=== PATIENT | female | born 1950 | race Caucasian/White ===

== ENCOUNTER 2016-11-22 17:34 | Inpatient (IN) | payer MEDICARE ==
[~2016-11-22] VITALS: Ht 160 cm; Wt 111.0 kg
[~2016-11-22 17:34] MED LIST: FLUARIX QUADRIV1 INJ IM
[2016-11-22 18:20] VITALS: BP 167/83
[2016-11-22 18:41] LABS: HEMATOCRIT 31.7 % (37.0-47.0); IMMATURE GRANULOCYTES 0.9 % (0.0-1.0); MEAN CELL VOLUME 81.9 fL CALC (80.0-100.0); MEAN CORPUSCULAR HGB 28.4 pG CALC (26.0-32.0); MEAN CORPUSCULAR HGB CONC 34.7 g/L CALC (32.0-36.0); NEUT# 6.05 thou/uL (2.00-7.15); RED BLOOD COUNT 3.87 mill/uL (4.20-5.60); RED CELL DISTRI WIDTH 12.2 % (11.5-15.5)
[2016-11-22 18:52] LABS: ALKALINE PHOSPHATASE 118 u/l (38-126); ANION GAP 15 (6-22 (CALC)); BILIRUBIN, TOTAL 0.3 mg/dL (0.0-1.4); BUN 19 mg/dL (8-23); BUN/CREATININE RATIO 24 (12-20 (CALC)); C-REACTIVE PROTEIN 2.3 mg/dL (0-0.9); CALCIUM 9.6 mg/dL (8.4-10.2); CARBON DIOXIDE 29 mmol/l (22-30); CHLORIDE 95 mmol/l (95-108); CREATININE 0.8 mg/dL (0.5-1.0); GFR > 60 ML/MIN (>=60 (CALC)); GFR FOR AFR.AMER. > 60 ML/MIN (>=60 (CALC)); GLUCOSE 325 mg/dL (82-115); POTASSIUM 4.4 mmol/l (3.5-5.1); SGOT/AST 20 u/l (9-36); SGPT/ALT 41 u/l (11-66); SODIUM 135 mmol/l (137-146); TOTAL PROTEIN 6.9 g/dL (6.3-8.2)
[2016-11-23] MEDS ORDERED: GLIPIZIDE10 M2 PO (01:06)
[2016-11-23] MEDS ORDERED: METFORMIN1000 MG PO (01:06)
[2016-11-23] MEDS ORDERED: OMEPRAZOLE20 M1 PO (01:08)
[2016-11-23] MEDS ORDERED: LEVOTHYROXIN150 MC1 PO (01:40)
[2016-11-23] MEDS ORDERED: LOSARTAN POT50 MG PO (01:40)
[2016-11-23] MEDS ORDERED: LOVASTATIN20 M1 PO (01:41)
[2016-11-23] MEDS ORDERED: MONTELUKAST SOD10 MG PO (01:46)
[2016-11-23] MEDS ORDERED: HYDROCHLOROTH12.5 M1 PO (01:49)
[2016-11-23] MEDS ORDERED: PRAMIPEXOLE0.125 MG PO (01:49)
[2016-11-23] MEDS ORDERED: VITAMIN D31000 UNI1 PO (01:52)
[2016-11-23] MEDS ORDERED: [UNRECOGNIZED DRUG - OTHER] PO (01:55)
[2016-11-23] MEDS ORDERED: PERCOCET 5/325M1 TAB PO (01:56)
[2016-11-23] MEDS ORDERED: DOCUSATE SOD100 M2 PO (01:56)
[2016-11-23 04:40] VITALS: BP 129/76
[2016-11-23 07:08] LABS: ANION GAP 12 (6-22 (CALC)); BUN 18 mg/dL (8-23); BUN/CREATININE RATIO 23 (12-20 (CALC)); CALCIUM 9.3 mg/dL (8.4-10.2); CALCULATED LDLCHOLESTEROL 115 mg/dL (62-129 (CALC)); CARBON DIOXIDE 30 mmol/l (22-30); CHLORIDE 99 mmol/l (95-108); CREATININE 0.8 mg/dL (0.5-1.0); GFR > 60 ML/MIN (>=60 (CALC)); GFR FOR AFR.AMER. > 60 ML/MIN (>=60 (CALC)); GLUCOSE 180 mg/dL (82-115); HDL CHOLESTEROL 44 mg/dL (>=40); MAGNESIUM 1.6 mg/dL (1.6-2.3); POTASSIUM 4.3 mmol/l (3.5-5.1); SODIUM 137 mmol/l (137-146); TOTAL CHOLESTEROL 217 mg/dl (0-199); TRIGLYCERIDES REFLEX TO dLDL 288 mg/dl (30-149); VLDL CHOLESTROL 58 mg/dl (1-41 (CALC))
[2016-11-23 07:38] LABS: TSH, 3RD GENERATION 7.05 uIU/mL (0.47 - 4.68)
[2016-11-23 10:30] VITALS: BP 129/76
[2016-11-23 15:41] VITALS: BP 145/76
[2016-11-23 20:40] VITALS: BP 160/74
[2016-11-24] VITALS (10 sets, daily range): BP systolic 118–160; BP diastolic 45–74
[2016-11-25 04:25] VITALS: BP 146/74
[2016-11-25 04:54] LABS: ANION GAP 11 (6-22 (CALC)); BUN 14 mg/dL (8-23); BUN/CREATININE RATIO 20 (12-20 (CALC)); CALCIUM 9.1 mg/dL (8.4-10.2); CARBON DIOXIDE 30 mmol/l (22-30); CHLORIDE 101 mmol/l (95-108); CREATININE 0.7 mg/dL (0.5-1.0); GFR > 60 ML/MIN (>=60 (CALC)); GFR FOR AFR.AMER. > 60 ML/MIN (>=60 (CALC)); GLUCOSE 134 mg/dL (82-115); POTASSIUM 4.6 mmol/l (3.5-5.1); SODIUM 138 mmol/l (137-146)
[2016-11-25 05:54] LABS: HEMATOCRIT 31.2 % (37.0-47.0); HEMOGLOBIN 10.5 g/dl (12.0-16.0); IMMATURE GRANULOCYTES 0.9 % (0.0-1.0); MEAN CELL VOLUME 83.9 fL CALC (80.0-100.0); MEAN CORPUSCULAR HGB 28.2 pG CALC (26.0-32.0); MEAN CORPUSCULAR HGB CONC 33.7 g/L CALC (32.0-36.0); NEUT# 6.13 thou/uL (2.00-7.15); RED BLOOD COUNT 3.72 mill/uL (4.20-5.60); RED CELL DISTRI WIDTH 12.2 % (11.5-15.5)
[2016-11-25 08:14] VITALS: BP 162/77
[2016-11-25 15:41] VITALS: BP 151/67
[2016-11-25 20:00] VITALS: BP 145/71
[2016-11-26 04:00] VITALS: BP 137/73
[2016-11-26 07:40] VITALS: BP 179/55
[2016-11-26 09:37] VITALS: BP 137/73
== END 2016-11-26 15:40 | DRG 617 ==
LOC: MS2 17:34
PROVIDERS: Internal Medicine; ADMIT Internal Medicine; ATTEND Internal Medicine
PROC: 02HV33Z Insertion of Infusion Device into Superior Vena Cava, Percutaneous Approach (ICD-10-PCS; 2016-11-23)
PROC: B518ZZA Fluoroscopy of Superior Vena Cava, Guidance (ICD-10-PCS; 2016-11-23)
PROC: 0Y6N0ZF Detachment at Left Foot, Partial 5th Ray, Open Approach (ICD-10-PCS; principal; 2016-11-24)
DX: E11.69 Type 2 diabetes mellitus with other specified complication (principal); M86.9 Osteomyelitis, unspecified; E11.65 Type 2 diabetes mellitus with hyperglycemia; E11.51 Type 2 diabetes mellitus with diabetic peripheral angiopathy without gangrene; L97.429 Non-pressure chronic ulcer of left heel and midfoot with unspecified severity; L03.116 Cellulitis of left lower limb; T82.898A Other specified complication of vascular prosthetic devices, implants and grafts, initial encounter; I10 Essential (primary) hypertension; E11.621 Type 2 diabetes mellitus with foot ulcer; L97.529 Non-pressure chronic ulcer of other part of left foot with unspecified severity; E11.42 Type 2 diabetes mellitus with diabetic polyneuropathy; I25.10 Atherosclerotic heart disease of native coronary artery without angina pectoris; E03.9 Hypothyroidism, unspecified; G47.33 Obstructive sleep apnea (adult) (pediatric); E78.5 Hyperlipidemia, unspecified; J45.909 Unspecified asthma, uncomplicated; K21.9 Gastro-esophageal reflux disease without esophagitis; G25.81 Restless legs syndrome; Y83.8 Other surgical procedures as the cause of abnormal reaction of the patient, or of later complication, without mention of misadventure at the time of the procedure; B95.2 Enterococcus as the cause of diseases classified elsewhere; Z79.84 Long term (current) use of oral hypoglycemic drugs; Z88.1 Allergy status to other antibiotic agents
CPT/HCPCS: A9579; J0692; J1650; J2997; J3370

== ENCOUNTER 2017-03-14 11:51 | Emergency (ER) | payer MEDICARE ==
[~2017-03-14] VITALS: Ht 160 cm; Wt 115.0 kg
[~2017-03-14 11:51] MED LIST changes: +DOCUSATE SOD100 M2 PO; +GLIPIZIDE10 M2 PO; +HYDROCHLOROTH12.5 M1 PO; +LEVOTHYROXIN150 MC1 PO; +LOSARTAN POT50 MG PO; +LOVASTATIN20 M1 PO; +METFORMIN1000 MG PO; +MONTELUKAST SOD10 MG PO; +OMEPRAZOLE20 M1 PO; +PERCOCET 5/325M1 TAB PO; +PRAMIPEXOLE0.125 MG PO; +VITAMIN D31000 UNI1 PO; +[UNRECOGNIZED DRUG - OTHER] PO
[2017-03-14 13:10] VITALS: BP 141/64
== END 2017-03-14 13:10 | disposition home or self-care (01) ==
LOC: ED 11:51
DX: S91.115A Laceration without foreign body of left lesser toe(s) without damage to nail, initial encounter (principal); W57.XXXA Bitten or stung by nonvenomous insect and other nonvenomous arthropods, initial encounter; S90.465A Insect bite (nonvenomous), left lesser toe(s), initial encounter; X58.XXXA Exposure to other specified factors, initial encounter; Y92.009 Unspecified place in unspecified non-institutional (private) residence as the place of occurrence of the external cause

== ENCOUNTER 2018-02-09 15:15 | Outpatient (RCR) | payer MEDICARE ==
[2018-01-11 08:40] VITALS: BP 152/74
[2018-01-11 14:20] VITALS: BP 151/73
[2018-01-11 21:53] VITALS: BP 135/53
[2018-01-12 08:17] VITALS: BP 156/72
[2018-01-12 14:35] VITALS: BP 141/64
[2018-01-12 21:50] VITALS: BP 151/61
[2018-01-13 08:00] VITALS: BP 123/90
[2018-01-13 14:15] VITALS: BP 151/69
[2018-01-13 21:38] VITALS: BP 146/71
[2018-01-14 08:42] VITALS: BP 142/71
[2018-01-14 14:41] VITALS: BP 167/81
[2018-01-14 14:55] LABS: ANION GAP 15 (6-22 (CALC)); BUN 29 mg/dL (8-23); BUN/CREATININE RATIO 29 (12-20 (CALC)); CARBON DIOXIDE 26 mmol/l (22-30); CHLORIDE 106 mmol/l (95-108); GFR 55 ML/MIN (>=60 (CALC)); GFR FOR AFR.AMER. > 60 ML/MIN (>=60 (CALC)); POTASSIUM 4.4 mmol/l (3.5-5.1); SODIUM 142 mmol/l (137-146)
[2018-01-15 08:59] VITALS: BP 161/83
[2018-01-15 16:29] VITALS: BP 136/65
[2018-01-16 11:49] VITALS: BP 150/97
[2018-01-16 16:02] VITALS: BP 153/78
[2018-01-17 08:32] VITALS: BP 163/93
[2018-01-17 15:22] LABS: HEMATOCRIT 32.5 % (37.0-47.0); HEMOGLOBIN 10.8 g/dl (12.0-16.0); IMMATURE GRANULOCYTES 0.3 % (0.0-5.0); MEAN CELL VOLUME 85.8 fL CALC (80.0-100.0); MEAN CORPUSCULAR HGB 28.5 pG CALC (26.0-32.0); MEAN CORPUSCULAR HGB CONC 33.2 g/L CALC (32.0-36.0); NEUT# 4.33 thou/uL (2.00-7.15); RED BLOOD COUNT 3.79 mill/uL (4.20-5.60); RED CELL DISTRI WIDTH 13.1 % (11.5-15.5)
[2018-01-17 16:28] LABS: ANION GAP 13 (6-22 (CALC)); BUN 29 mg/dL (8-23); BUN/CREATININE RATIO 31 (12-20 (CALC)); CARBON DIOXIDE 27 mmol/l (22-30); CHLORIDE 104 mmol/l (95-108); CREATININE 0.9 mg/dL (0.5-1.0); GFR > 60 ML/MIN (>=60 (CALC)); GFR FOR AFR.AMER. > 60 ML/MIN (>=60 (CALC)); POTASSIUM 4.6 mmol/l (3.5-5.1); SODIUM 140 mmol/l (137-146)
[2018-01-18 08:36] VITALS: BP 158/91
[2018-01-18 09:35] VITALS: BP 158/91
[2018-01-18 15:33] VITALS: BP 163/58
--- NOTE | 2018-01-18 15:55 | NUR ---
VANCOMYCIN 1500MG UNABLE TO BE SCANNED AT THIS TIME;SHIVA,PHARMACY NOTIFIED BY SIDDHARTHA, [employer] AND ORDERS TO ADMINISTER OBTAINED.CURRENT HARD COPY ORDER WITHIN DATE,PT TO RECEIVED FOR 6 WEEKS STARTING 12/30/17. VANCO TROUGH OBTAINED 01/17/18 RESULTED 13. CONTINUE WITH ADMINISTRATION AT THIS TIME.
[2018-01-19 09:52] VITALS: BP 128/75
[2018-01-19 15:07] VITALS: BP 166/82
[2018-01-20 09:10] VITALS: BP 160/92
[2018-01-20 17:11] VITALS: BP 155/72
[2018-01-21 09:47] VITALS: BP 161/69
[2018-01-21 15:25] LABS: ANION GAP 16 (6-22 (CALC)); BUN 24 mg/dL (8-23); BUN/CREATININE RATIO 30 (12-20 (CALC)); CARBON DIOXIDE 27 mmol/l (22-30); CHLORIDE 106 mmol/l (95-108); CREATININE 0.8 mg/dL (0.5-1.0); GFR > 60 ML/MIN (>=60 (CALC)); GFR FOR AFR.AMER. > 60 ML/MIN (>=60 (CALC)); POTASSIUM 4.5 mmol/l (3.5-5.1); SODIUM 143 mmol/l (137-146)
[2018-01-21 17:13] VITALS: BP 150/72
[2018-01-22 08:05] VITALS: BP 149/72
[2018-01-22 16:00] VITALS: BP 154/57
[2018-01-24 09:18] VITALS: BP 171/86
[2018-01-24 15:17] VITALS: BP 143/63
[2018-01-24 16:26] LABS: ANION GAP 18 (6-22 (CALC)); BUN 26 mg/dL (8-23); BUN/CREATININE RATIO 29 (12-20 (CALC)); CARBON DIOXIDE 23 mmol/l (22-30); CHLORIDE 106 mmol/l (95-108); CREATININE 0.9 mg/dL (0.5-1.0); GFR > 60 ML/MIN (>=60 (CALC)); GFR FOR AFR.AMER. > 60 ML/MIN (>=60 (CALC)); POTASSIUM 4.5 mmol/l (3.5-5.1); SODIUM 142 mmol/l (137-146)
[2018-01-25 09:57] VITALS: BP 167/79
[2018-01-25 18:45] VITALS: BP 139/80
[2018-01-26 08:34] VITALS: BP 177/89
[2018-01-26 15:30] VITALS: BP 135/70
[2018-01-27 07:59] VITALS: BP 156/80
[2018-01-27 15:49] LABS: HEMATOCRIT 30.1 % (37.0-47.0); HEMOGLOBIN 10.1 g/dl (12.0-16.0); IMMATURE GRANULOCYTES 0.4 % (0.0-5.0); MEAN CELL VOLUME 85.3 fL CALC (80.0-100.0); MEAN CORPUSCULAR HGB 28.6 pG CALC (26.0-32.0); MEAN CORPUSCULAR HGB CONC 33.6 g/L CALC (32.0-36.0); NEUT# 3.72 thou/uL (2.00-7.15); RED BLOOD COUNT 3.53 mill/uL (4.20-5.60); RED CELL DISTRI WIDTH 12.9 % (11.5-15.5)
[2018-01-27 16:12] LABS: ANION GAP 14 (6-22 (CALC)); BUN 27 mg/dL (8-23); BUN/CREATININE RATIO 32 (12-20 (CALC)); C-REACTIVE PROTEIN 0.7 mg/dL (0-0.9); CARBON DIOXIDE 27 mmol/l (22-30); CHLORIDE 105 mmol/l (95-108); CREATININE 0.9 mg/dL (0.5-1.0); GFR > 60 ML/MIN (>=60 (CALC)); GFR FOR AFR.AMER. > 60 ML/MIN (>=60 (CALC)); POTASSIUM 4.3 mmol/l (3.5-5.1); SODIUM 142 mmol/l (137-146)
[2018-01-27 17:40] VITALS: BP 147/83
[2018-01-28 07:15] VITALS: BP 148/74
[2018-01-29 10:40] VITALS: BP 165/81
[2018-01-30 07:57] VITALS: BP 180/80
[2018-01-30 15:31] LABS: HEMATOCRIT 30.7 % (37.0-47.0); HEMOGLOBIN 10.3 g/dl (12.0-16.0); IMMATURE GRANULOCYTES 0.3 % (0.0-5.0); MEAN CELL VOLUME 84.6 fL CALC (80.0-100.0); MEAN CORPUSCULAR HGB 28.4 pG CALC (26.0-32.0); MEAN CORPUSCULAR HGB CONC 33.6 g/L CALC (32.0-36.0); NEUT# 4.62 thou/uL (2.00-7.15); RED BLOOD COUNT 3.63 mill/uL (4.20-5.60); RED CELL DISTRI WIDTH 12.8 % (11.5-15.5)
[2018-01-30 15:57] LABS: ALKALINE PHOSPHATASE 117 u/l (38-126); ANION GAP 14 (6-22 (CALC)); BILIRUBIN, TOTAL 0.3 mg/dL (0.0-1.4); BUN 23 mg/dL (8-23); BUN/CREATININE RATIO 22 (12-20 (CALC)); CARBON DIOXIDE 27 mmol/l (22-30); CHLORIDE 106 mmol/l (95-108); GFR 55 ML/MIN (>=60 (CALC)); GFR FOR AFR.AMER. > 60 ML/MIN (>=60 (CALC)); POTASSIUM 4.4 mmol/l (3.5-5.1); SGPT/ALT 46 u/l (11-66); SODIUM 143 mmol/l (137-146); TOTAL PROTEIN 7.3 g/dL (6.3-8.2)
[2018-01-30 16:04] LABS: SGOT/AST 32 u/l (9-36)
[2018-01-30 17:02] LABS: C-REACTIVE PROTEIN 1.1 mg/dL (0-0.9)
[2018-01-31 08:15] VITALS: BP 151/66
[2018-01-31 16:43] VITALS: BP 143/69
[2018-02-01 08:00] VITALS: BP 185/78
[2018-02-01 09:00] VITALS: BP 185/78
[2018-02-01 15:29] VITALS: BP 191/65
--- NOTE | 2018-02-01 15:47 | NUR ---
DRESSING TO LEFT AC PICC LINE CHANGED USING STERILE TECHNIQUE, PT TOLERATED WELL. CALL ACHARYA WITHIN REACH
[2018-02-02 08:30] VITALS: BP 190/81
[2018-02-02 15:19] VITALS: BP 171/70
[2018-02-03 11:27] VITALS: BP 148/77
[2018-02-03 15:39] LABS: HEMATOCRIT 32.1 % (37.0-47.0); HEMOGLOBIN 10.8 g/dl (12.0-16.0); IMMATURE GRANULOCYTES 0.6 % (0.0-5.0); MEAN CELL VOLUME 84.5 fL CALC (80.0-100.0); MEAN CORPUSCULAR HGB 28.4 pG CALC (26.0-32.0); MEAN CORPUSCULAR HGB CONC 33.6 g/L CALC (32.0-36.0); NEUT# 5.3 thou/uL (2.00-7.15); RED BLOOD COUNT 3.8 mill/uL (4.20-5.60); RED CELL DISTRI WIDTH 12.9 % (11.5-15.5)
[2018-02-03 15:47] LABS: ANION GAP 16 (6-22 (CALC)); BUN 25 mg/dL (8-23); BUN/CREATININE RATIO 31 (12-20 (CALC)); C-REACTIVE PROTEIN 0.9 mg/dL (0-0.9); CARBON DIOXIDE 26 mmol/l (22-30); CHLORIDE 104 mmol/l (95-108); CREATININE 0.8 mg/dL (0.5-1.0); GFR > 60 ML/MIN (>=60 (CALC)); GFR FOR AFR.AMER. > 60 ML/MIN (>=60 (CALC)); POTASSIUM 4.3 mmol/l (3.5-5.1); SODIUM 141 mmol/l (137-146)
[2018-02-03 16:01] VITALS: BP 144/81
[2018-02-04 07:26] VITALS: BP 153/76
[2018-02-05 07:46] VITALS: BP 140/70
[2018-02-05 16:34] VITALS: BP 163/77
[2018-02-06 11:56] VITALS: BP 129/69
[2018-02-07 08:08] VITALS: BP 177/78
[2018-02-07 17:25] VITALS: BP 149/77
[2018-02-08 07:21] VITALS: BP 168/72
[2018-02-08 17:38] VITALS: BP 157/69
[~2018-02-09] VITALS: Ht 152.4 cm; Wt 115.7 kg
[2018-02-09 08:22] VITALS: BP 151/65
[~2018-02-09 15:15] MED LIST changes: +ADULT ASPIRIN E81 MG PO; +AMLODIPINE10 MG PO; +CLOPIDOGREL75 MG PO; +JANUVIA100 MG PO; +LEVOTHYROXIN125 MC1 PO; +LOSARTAN POT100 MG PO; +LOSARTAN/HCT1 TA2 PO; +METOPROL TAR25 MG PO; +MULT VITAMIN PO; +NOVOLOG FLEXPEN SC; +PRILOSEC20 MG PO; +SUPER BIOTIN5000 MC1 PO; +TRESIBA FL100 UNIT/M IJ; +VALACYCLOVIR500 MG PO; +VITAMIN C1000 MG PO
[2018-02-09 17:30] VITALS: BP 176/58
== END 2018-02-09 23:59 | disposition home or self-care (01) ==
LOC: ICUOP 15:15
PROVIDERS: ATTEND Nurse Practitioner Family
DX: E11.621 Type 2 diabetes mellitus with foot ulcer (principal); L97.522 Non-pressure chronic ulcer of other part of left foot with fat layer exposed; L97.512 Non-pressure chronic ulcer of other part of right foot with fat layer exposed; E11.22 Type 2 diabetes mellitus with diabetic chronic kidney disease
CPT/HCPCS: J3370; S0073

== ENCOUNTER 2018-02-17 15:03 | Outpatient (RCR) | payer MEDICARE ==
[2018-02-10 08:00] VITALS: BP 174/76
[2018-02-10 17:38] VITALS: BP 185/81
[2018-02-11 09:39] VITALS: BP 175/70
[2018-02-12 08:50] VITALS: BP 149/73
[2018-02-12 15:21] VITALS: BP 163/70
[2018-02-13 09:53] VITALS: BP 165/73
[2018-02-13 15:22] LABS: HEMATOCRIT 31.8 % (37.0-47.0); HEMOGLOBIN 10.8 g/dl (12.0-16.0); MEAN CELL VOLUME 84.1 fL CALC (80.0-100.0); MEAN CORPUSCULAR HGB 28.6 pG CALC (26.0-32.0); NEUT# 5.76 thou/uL (2.00-7.15); RED BLOOD COUNT 3.78 mill/uL (4.20-5.60); RED CELL DISTRI WIDTH 13.2 % (11.5-15.5)
[2018-02-13 15:50] LABS: ANION GAP 14 (6-22 (CALC)); BUN 22 mg/dL (8-23); BUN/CREATININE RATIO 31 (12-20 (CALC)); C-REACTIVE PROTEIN 0.7 mg/dL (0-0.9); CARBON DIOXIDE 27 mmol/l (22-30); CHLORIDE 103 mmol/l (95-108); CREATININE 0.7 mg/dL (0.5-1.0); GFR > 60 ML/MIN (>=60 (CALC)); GFR FOR AFR.AMER. > 60 ML/MIN (>=60 (CALC)); POTASSIUM 4.2 mmol/l (3.5-5.1); SODIUM 141 mmol/l (137-146)
[2018-02-14 08:35] VITALS: BP 185/83
[2018-02-14 16:26] VITALS: BP 147/63
[2018-02-15 08:10] VITALS: BP 202/83
[2018-02-15 14:58] VITALS: BP 167/72
[2018-02-16 08:43] VITALS: BP 168/94
[2018-02-16 17:37] VITALS: BP 181/76
[2018-02-17 07:21] LABS: HEMATOCRIT 32.1 % (37.0-47.0); HEMOGLOBIN 10.9 g/dl (12.0-16.0); MEAN CELL VOLUME 85.6 fL CALC (80.0-100.0); MEAN CORPUSCULAR HGB 29.1 pG CALC (26.0-32.0); RED BLOOD COUNT 3.75 mill/uL (4.20-5.60); RED CELL DISTRI WIDTH 13.4 % (11.5-15.5)
[2018-02-17 08:07] LABS: ANION GAP 15 (6-22 (CALC)); BUN 25 mg/dL (8-23); BUN/CREATININE RATIO 33 (12-20 (CALC)); C-REACTIVE PROTEIN < 0.5 mg/dL (0-0.9); CARBON DIOXIDE 26 mmol/l (22-30); CHLORIDE 103 mmol/l (95-108); CREATININE 0.8 mg/dL (0.5-1.0); GFR > 60 ML/MIN (>=60 (CALC)); GFR FOR AFR.AMER. > 60 ML/MIN (>=60 (CALC)); POTASSIUM 4.3 mmol/l (3.5-5.1); SODIUM 140 mmol/l (137-146)
[2018-02-17 11:13] VITALS: BP 168/83
[2018-02-17 18:38] VITALS: BP 143/658
== END 2018-02-17 17:45 ==
LOC: INF 15:03
PROVIDERS: ATTEND Nurse Practitioner Family
DX: E11.621 Type 2 diabetes mellitus with foot ulcer (principal); L97.522 Non-pressure chronic ulcer of other part of left foot with fat layer exposed; L97.512 Non-pressure chronic ulcer of other part of right foot with fat layer exposed
CPT/HCPCS: J3370; S0073

== ENCOUNTER 2018-05-28 13:45 | Outpatient (RCR) | payer MEDICARE | END 2018-05-28 16:45 | disposition home or self-care (01) | LOC: OPWC 13:45 | PROVIDERS: ATTEND Surgery | DX: E11.621 Type 2 diabetes mellitus with foot ulcer (principal); I70.203 Unspecified atherosclerosis of native arteries of extremities, bilateral legs; E11.40 Type 2 diabetes mellitus with diabetic neuropathy, unspecified; E11.65 Type 2 diabetes mellitus with hyperglycemia; E66.9 Obesity, unspecified; R60.9 Edema, unspecified | CPT/HCPCS: A6210 ==

== ENCOUNTER → 2018-06-25 | Outpatient (REF) | payer MEDICARE | END | disposition home or self-care (01) | LOC: DI 13:22 | PROVIDERS: ATTEND Podiatrist Foot & Ankle Surgery | DX: M79.671 Pain in right foot (principal); M86.8X7 Other osteomyelitis, ankle and foot; Z89.421 Acquired absence of other right toe(s); Z89.422 Acquired absence of other left toe(s) ==

== ENCOUNTER 2019-02-07 11:16 | Emergency (ER) | payer MEDICARE ==
[~2019-02-07] VITALS: Ht 152.4 cm; Wt 135.0 kg
[2019-02-07 14:55] VITALS: BP 180/78
== END 2019-02-07 14:55 | disposition home or self-care (01) ==
LOC: ED 11:16
PROC: 0HQNXZZ Repair Left Foot Skin, External Approach (ICD-10-PCS; principal; 2019-02-07)
DX: S91.115A Laceration without foreign body of left lesser toe(s) without damage to nail, initial encounter (principal); S63.501A Unspecified sprain of right wrist, initial encounter; S80.01XA Contusion of right knee, initial encounter; E11.9 Type 2 diabetes mellitus without complications; I10 Essential (primary) hypertension; E03.9 Hypothyroidism, unspecified; I25.10 Atherosclerotic heart disease of native coronary artery without angina pectoris; W01.0XXA Fall on same level from slipping, tripping and stumbling without subsequent striking against object, initial encounter; Z95.5 Presence of coronary angioplasty implant and graft; Z89.421 Acquired absence of other right toe(s); Z95.1 Presence of aortocoronary bypass graft; Z89.422 Acquired absence of other left toe(s)

== ENCOUNTER 2019-03-10 09:31 | Day surgery (SDC) | payer MEDICARE ==
[~2019-03-10] VITALS: Ht 160 cm; Wt 121.1 kg
[~2019-03-10 09:31] MED LIST changes: +B COMPLEX PLUS PO; +BENICAR HCT1 TA1 PO; +COQ10200 MG PO; +EDTA DISODIU XX; +FUROSEMIDE20 MG PO
[2019-03-10 13:05] VITALS: BP 142/61
== END 2019-03-10 13:14 | disposition home or self-care (01) ==
LOC: ORM 09:31
PROVIDERS: ATTEND Podiatrist Foot & Ankle Surgery
PROC: 0Y6W0Z0 Detachment at Left 4th Toe, Complete, Open Approach (ICD-10-PCS; principal; 2019-03-10)
DX: E11.621 Type 2 diabetes mellitus with foot ulcer (principal); L97.528 Non-pressure chronic ulcer of other part of left foot with other specified severity; L03.032 Cellulitis of left toe; M20.42 Other hammer toe(s) (acquired), left foot; E11.42 Type 2 diabetes mellitus with diabetic polyneuropathy; E11.51 Type 2 diabetes mellitus with diabetic peripheral angiopathy without gangrene; I10 Essential (primary) hypertension; I25.10 Atherosclerotic heart disease of native coronary artery without angina pectoris; Z89.422 Acquired absence of other left toe(s); Z98.62 Peripheral vascular angioplasty status; Z79.4 Long term (current) use of insulin; Z95.1 Presence of aortocoronary bypass graft

== ENCOUNTER 2019-06-19 | Day surgery (SDC) | payer MEDICARE ==
[~2019-06-19] MED LIST changes: +COLACE CLEAR50 MG PO; +GABAPENTIN300 M2 PO; +LEVOTHYROXIN137 MCG PO; +LIPITOR10 M1 PO; -PRILOSEC20 MG PO; +PRILOSEC20 MG/CAP PO; +RESTORIL15 M1 PO; +TYLENOL325 M2 PO; +[UNRECOGNIZED DRUG - OTHER] PO
== END 2019-06-19 11:45 | disposition home or self-care (01) ==
PROC: 0DB98ZX Excision of Duodenum, Via Natural or Artificial Opening Endoscopic, Diagnostic (ICD-10-PCS; principal; 2019-06-19)
PROC: 0DB78ZX Excision of Stomach, Pylorus, Via Natural or Artificial Opening Endoscopic, Diagnostic (ICD-10-PCS; 2019-06-19)
PROC: 0DB48ZX Excision of Esophagogastric Junction, Via Natural or Artificial Opening Endoscopic, Diagnostic (ICD-10-PCS; 2019-06-19)
PROC: 0D758ZZ Dilation of Esophagus, Via Natural or Artificial Opening Endoscopic (ICD-10-PCS; 2019-06-19)
DX: K29.50 Unspecified chronic gastritis without bleeding (principal); K44.9 Diaphragmatic hernia without obstruction or gangrene; K31.7 Polyp of stomach and duodenum; I10 Essential (primary) hypertension; J44.9 Chronic obstructive pulmonary disease, unspecified; E11.51 Type 2 diabetes mellitus with diabetic peripheral angiopathy without gangrene; I25.10 Atherosclerotic heart disease of native coronary artery without angina pectoris; Z79.899 Other long term (current) drug therapy; Z95.1 Presence of aortocoronary bypass graft; Z95.5 Presence of coronary angioplasty implant and graft; Z79.84 Long term (current) use of oral hypoglycemic drugs

== ENCOUNTER 2019-08-08 | Emergency (ER) | payer MEDICARE ==
[2019-08-08 12:32] LABS: HEMATOCRIT 37.5 % (37.0-47.0); HEMOGLOBIN 11.9 g/dl (12.0-16.0); IMMATURE GRANULOCYTES 0.3 % (0.0-5.0); MEAN CELL VOLUME 83.5 fL CALC (80.0-100.0); MEAN CORPUSCULAR HGB 26.5 pG CALC (26.0-32.0); MEAN CORPUSCULAR HGB CONC 31.7 g/dL CAL (32.0-36.0); NEUT# 5.71 thou/uL (2.00-7.15); RED BLOOD COUNT 4.49 mill/uL (4.20-5.60); RED CELL DISTRI WIDTH 13.2 % (11.5-15.5)
[2019-08-08 12:51] LABS: ALBUMIN 3.8 g/dL (3.2-5.0); ANION GAP 13 (6-22 (CALC)); BILIRUBIN, TOTAL 0.7 mg/dL (0.0-1.4); BUN 13 mg/dL (8-23); BUN/CREATININE RATIO 16 (12-20 (CALC)); CARBON DIOXIDE 26 mmol/l (22-30); CHLORIDE 100 mmol/l (95-108); CREATININE 0.8 mg/dL (0.5-1.0); GFR > 60 ML/MIN (>=60 (CALC)); GFR FOR AFR.AMER. > 60 ML/MIN (>=60 (CALC)); POTASSIUM 4.1 mmol/l (3.5-5.1); SODIUM 134 mmol/l (137-146); TOTAL PROTEIN 6.8 g/dL (6.3-8.2)
[2019-08-08 12:52] LABS: ALKALINE PHOSPHATASE 205 u/l (38-126); SGOT/AST 59 u/l (9-36)
[2019-08-08] MEDS ORDERED: REGLAN10 MG PO (13:01)
== END 2019-08-08 13:26 | disposition home or self-care (01) ==
DX: E11.9 Type 2 diabetes mellitus without complications (principal); R11.2 Nausea with vomiting, unspecified; I10 Essential (primary) hypertension; E03.9 Hypothyroidism, unspecified; I25.10 Atherosclerotic heart disease of native coronary artery without angina pectoris; Z95.5 Presence of coronary angioplasty implant and graft; Z79.4 Long term (current) use of insulin; Z98.84 Bariatric surgery status; E86.0 Dehydration

== ENCOUNTER 2019-08-29 | Emergency (ER) | payer MEDICARE ==
[~2019-08-29] MED LIST changes: +REGLAN10 MG PO
[2019-08-29 11:38] LABS: HEMATOCRIT 31.6 % (37.0-47.0); HEMOGLOBIN 10.1 g/dl (12.0-16.0); IMMATURE GRANULOCYTES 0.3 % (0.0-5.0); MEAN CORPUSCULAR HGB 26.9 pG CALC (26.0-32.0); NEUT# 5.64 thou/uL (2.00-7.15); RED BLOOD COUNT 3.76 mill/uL (4.20-5.60); RED CELL DISTRI WIDTH 13.2 % (11.5-15.5)
[2019-08-29 12:18] LABS: ANION GAP 10 (6-22 (CALC)); BILIRUBIN, TOTAL 0.9 mg/dL (0.0-1.4); BUN 9 mg/dL (8-23); BUN/CREATININE RATIO 13 (12-20 (CALC)); CARBON DIOXIDE 25 mmol/l (22-30); CHLORIDE 103 mmol/l (95-108); CREATININE 0.7 mg/dL (0.5-1.0); GFR > 60 ML/MIN (>=60 (CALC)); GFR FOR AFR.AMER. > 60 ML/MIN (>=60 (CALC)); LIPASE 12 u/l (23-300); POTASSIUM 3.9 mmol/l (3.5-5.1); SGOT/AST 19 u/l (9-36); SODIUM 134 mmol/l (137-146)
[2019-08-29 12:28] LABS: ALBUMIN 2.7 g/dL (3.2-5.0); ALKALINE PHOSPHATASE 89 u/l (38-126); AMYLASE < 30 u/l (30-110); TOTAL PROTEIN 5.3 g/dL (6.3-8.2)
[2019-08-29 12:43] LABS: URINE BILIRUBIN - DIPSTICK NEGATIVE (NEGATIVE); URINE BLOOD DIPSTICK NEGATIVE (NEGATIVE); URINE COLOR YELLOW; URINE GLUCOSE - DIPSTICK NEGATIVE (NEGATIVE); URINE KETONE NEGATIVE (NEGATIVE); URINE LEUK ESTERASE NEGATIVE (NEGATIVE); URINE NITRITE - DIPSTICK NEGATIVE (Negative); URINE PH 5.5 (4.5-8.0); URINE PROTEIN - DIPSTICK NEGATIVE (NEG-TRACE); URINE SPECIFIC GRAVITY 1.015; URINE UROBILINOGEN - DIPSTICK 0.2 E.U./dL (0.2)
[2019-08-29] MEDS ORDERED: ZOFRAN4 MG/TAB PO (16:17)
[2019-08-29] MEDS ORDERED: METOCLOPRAMIDE10 MG PO (16:17)
[2019-08-29] MEDS ORDERED: SCOPOLAMIN1 MG/3 DAY (16:17)
[2019-08-29] MEDS ORDERED: POTASSIUM CHLO20 ME2 PO (16:17)
== END 2019-08-29 16:07 | disposition home or self-care (01) ==
PROVIDERS: Emergency Medicine
DX: R11.2 Nausea with vomiting, unspecified (principal); E11.9 Type 2 diabetes mellitus without complications; I10 Essential (primary) hypertension; E03.9 Hypothyroidism, unspecified; I25.10 Atherosclerotic heart disease of native coronary artery without angina pectoris; Z95.1 Presence of aortocoronary bypass graft; Z95.5 Presence of coronary angioplasty implant and graft; Z98.84 Bariatric surgery status; Z79.4 Long term (current) use of insulin; Z93.1 Gastrostomy status
CPT/HCPCS: J3475; Q9967

== ENCOUNTER 2020-06-14 11:16 | Day surgery (SDC) | payer MEDICARE ==
[~2020-06-14] VITALS: Ht 160 cm; Wt 87.5 kg
[~2020-06-14 11:16] MED LIST changes: +AMITRIPTYLIN10 MG PO; +BARIATRIC MULTI1 CAP PO; +BIOTIN5000 MC2 PO; +CALCI-CHE1 PO; +FERRAPLUS 90 PO; +LAXATIVE FORMULA PO; +MECLIZINE25 MG PO; +METOCLOPRAMIDE10 MG PO; +POTASSIUM CHLO20 ME2 PO; +PRAMIPEXOLE DI0.5 MG PO; -PRAMIPEXOLE0.125 MG PO; +SCOPOLAMIN1 MG/3 DAY; +VALERIAN ROOT250 MG PO; +ZOFRAN4 MG/TAB PO
[2020-06-14 16:10] VITALS: BP 118/53
== END 2020-06-14 16:45 | disposition home or self-care (01) ==
LOC: ORM 11:16
PROVIDERS: ATTEND Podiatrist Foot & Ankle Surgery
PROC: 0Y6N0Z9 Detachment at Left Foot, Partial 1st Ray, Open Approach (ICD-10-PCS; principal; 2020-06-14)
PROC: 0Y6N0ZB Detachment at Left Foot, Partial 2nd Ray, Open Approach (ICD-10-PCS; 2020-06-14)
PROC: 0Y6N0ZC Detachment at Left Foot, Partial 3rd Ray, Open Approach (ICD-10-PCS; 2020-06-14)
PROC: 0Y6N0ZD Detachment at Left Foot, Partial 4th Ray, Open Approach (ICD-10-PCS; 2020-06-14)
PROC: 0Y6N0ZF Detachment at Left Foot, Partial 5th Ray, Open Approach (ICD-10-PCS; 2020-06-14)
PROC: 0HXNXZZ Transfer Left Foot Skin, External Approach (ICD-10-PCS; 2020-06-14)
DX: S91.302A Unspecified open wound, left foot, initial encounter (principal); L03.116 Cellulitis of left lower limb; E11.51 Type 2 diabetes mellitus with diabetic peripheral angiopathy without gangrene; E11.40 Type 2 diabetes mellitus with diabetic neuropathy, unspecified; I10 Essential (primary) hypertension; E78.2 Mixed hyperlipidemia; I25.10 Atherosclerotic heart disease of native coronary artery without angina pectoris; Z79.4 Long term (current) use of insulin; I25.2 Old myocardial infarction; X58.XXXA Exposure to other specified factors, initial encounter; Z98.84 Bariatric surgery status; Z89.422 Acquired absence of other left toe(s); Z89.421 Acquired absence of other right toe(s); Z79.02 Long term (current) use of antithrombotics/antiplatelets; Z79.82 Long term (current) use of aspirin; Z87.891 Personal history of nicotine dependence; Z20.822 Contact with and (suspected) exposure to COVID-19
CPT/HCPCS: J0131

== ENCOUNTER 2020-06-26 21:00 | Emergency (ER) | payer MEDICARE ==
[~2020-06-26] VITALS: Ht 162.6 cm; Wt 80.0 kg
[2020-06-26 22:05] LABS: HEMATOCRIT 32.1 % (37.0-47.0); HEMOGLOBIN 10.7 g/dl (12.0-16.0); IMMATURE GRANULOCYTES 0.6 % (0.0-5.0); MEAN CELL VOLUME 85.1 fL CALC (80.0-100.0); MEAN CORPUSCULAR HGB 28.4 pG CALC (26.0-32.0); MEAN CORPUSCULAR HGB CONC 33.3 g/dL CAL (32.0-36.0); NEUT# 9.38 thou/uL (2.00-7.15); RED BLOOD COUNT 3.77 mill/uL (4.20-5.60); RED CELL DISTRI WIDTH 12.1 % (11.5-15.5)
[2020-06-26 22:23] LABS: ACT PARTIAL THROMBO TIME 23.9 SECONDS (20.0-32.5); ALBUMIN 3.8 g/dL (3.2-5.0); BILIRUBIN, TOTAL 0.6 mg/dL (0.0-1.4); CREATININE 1.3 mg/dL (0.5-1.0); INTERNATIONAL NORMALIZED RATIO 1.1 RATIO (0.7-1.3); POTASSIUM 4.3 mmol/l (3.5-5.1); PROTHROMBIN TIME 10.5 SECONDS (9.0-12.5)
[2020-06-26 22:25] LABS: MAGNESIUM 1.7 mg/dL (1.6-2.3)
[2020-06-26 22:34] LABS: D-DIMER 2.13 mg/L (0.19-0.60)
[2020-06-27 00:15] VITALS: BP 100/54
== END 2020-06-27 00:15 | disposition short-term general hospital (02) ==
LOC: ED 21:00
PROVIDERS: Family Medicine
DX: R55 Syncope and collapse (principal); E86.0 Dehydration; R79.89 Other specified abnormal findings of blood chemistry; I10 Essential (primary) hypertension; E11.9 Type 2 diabetes mellitus without complications; Z20.822 Contact with and (suspected) exposure to COVID-19
CPT/HCPCS: J1644

== ENCOUNTER 2021-10-19 11:24 | Inpatient (IN) | payer MEDICARE ==
[~2021-10-19] VITALS: Ht 160 cm; Wt 80.0 kg
[~2021-10-19 11:24] MED LIST changes: +ASPIRIN81 MG PO; +B-12500 MC1 PO; +BENICAR HCT1 TAB PO; +BIOTIN1000 MCG PO; +CALCIUM + D3 601 TAB; +COENZYME Q-10100 MG PO; +FAMOTIDINE20 M1 PO; +IRON (FERROUS S50 MG PO; +LEVOTHYROXIN150 MCG PO; +LIPITOR20 M1 PO; +MULTIVITAMI1 PO; +OMEPRAZOLE DR40 MG PO; +STOOL SOFTENER250 MG; +TEMAZEPAM15 MG PO; +ZINC30 M2 PO; +[UNRECOGNIZED DRUG - OTHER] PO
[2021-10-19] MEDS ORDERED: LOSARTAN POTASS25 MG PO (11:47)
[2021-10-19] MEDS ORDERED: LYRICA75 MG PO (11:47)
[2021-10-19 12:00] VITALS: BP 137/61
--- NOTE | 2021-10-19 13:24 | NUR ---
PATIENT ADMITTED TO ROOM 275 DIRECTLY FROM PHYSICIAN OFFICE. ARRIVED TO UNIT AT 1145. ORDERS RECIEVED, ASSESSMENT DONE, VITALS STABLE
[2021-10-19 14:35] LABS: IMMATURE GRANULOCYTES 0.2 % (0.0-5.0); MEAN CELL VOLUME 90.6 fL CALC (80.0-100.0); MEAN CORPUSCULAR HGB 29.5 pG CALC (26.0-32.0); MEAN CORPUSCULAR HGB CONC 32.6 g/dL CAL (32.0-36.0); NEUT# 4.75 thou/uL (2.00-7.15); RED BLOOD COUNT 3.39 mill/uL (4.20-5.60); RED CELL DISTRI WIDTH 11.8 % (11.5-15.5)
[2021-10-19 15:01] LABS: HEMATOCRIT 30.7 % (37.0-47.0)
[2021-10-19 15:03] LABS: ALKALINE PHOSPHATASE 87 u/l (38-126); BUN 14 mg/dL (8-23); BUN/CREATININE RATIO 15 (12-20 (CALC)); C-REACTIVE PROTEIN 3.1 mg/dL (0-0.9); CHLORIDE 105 mmol/l (95-108); CREATININE 0.9 mg/dL (0.5-1.0); GFR FOR AFR.AMER. > 60 ML/MIN (>=60 (CALC)); GFR OTHER RACES > 60 ML/MIN (>=60 (CALC)); MAGNESIUM 1.7 mg/dL (1.6-2.3); POTASSIUM 4.9 mmol/l (3.5-5.1); SGOT/AST 14 u/l (9-36); SODIUM 134 mmol/l (137-146)
[2021-10-19 15:09] LABS: ALBUMIN 2.5 g/dL (3.2-5.0); ANION GAP 12 (6-22 (CALC)); BILIRUBIN, TOTAL 0.2 mg/dL (0.0-1.4); CARBON DIOXIDE 22 mmol/l (22-30)
[2021-10-19 15:11] VITALS: BP 144/53
[2021-10-19 16:00] VITALS: BP 144/53
--- NOTE | 2021-10-19 16:17 | NUR ---
PATIENT RETURNING FROM MRI DEPARTMENT
--- NOTE | 2021-10-19 16:39 | NUR ---
S: MAGDY LOPEZ is a 70 F who presents with cellulitis. All medications in patient's chart were reviewed. O: VS: BP 144/53 mmHg, P 79 bpm, RR 20 breaths/min, T 98.9 F W 80 kg, HT 63 in, Scr 1 mg/dl, CrCl 53.3 ml/min P: Patient is on Azactam 2g IV q8h. Vancomycin ordered for pharmacy to dose. Start Vancomycin 1g IV Q24H. Vancomycin trough is drawn before the 4th dose on 10/19/21 @ 1630. Vancomycin goal trough is between 10-15 mcg/ml. Pharmacy will follow and or advise on antibiotics use as needed.
[2021-10-19 18:50] VITALS: BP 146/45
--- NOTE | 2021-10-19 19:27 | NUR ---
Received report from Aundrea CARRANZA. PT resting in bed. Denies any pain or discomfort at this time. call light within reach and bed alarm on
[2021-10-20 00:08] VITALS: BP 151/61
--- NOTE | 2021-10-20 00:39 | NUR ---
Pt resting in bed. Denies any pain or discomfort. Call esrra within reach and bed alarm on.
[2021-10-20 03:45] VITALS: BP 166/58
[2021-10-20 05:13] LABS: HEMATOCRIT 34.5 % (37.0-47.0); HEMOGLOBIN 11.2 g/dl (12.0-16.0); MEAN CELL VOLUME 91.8 fL CALC (80.0-100.0); MEAN CORPUSCULAR HGB 29.8 pG CALC (26.0-32.0); MEAN CORPUSCULAR HGB CONC 32.5 g/dL CAL (32.0-36.0); RED BLOOD COUNT 3.76 mill/uL (4.20-5.60); RED CELL DISTRI WIDTH 11.8 % (11.5-15.5)
[2021-10-20 05:36] LABS: ANION GAP 9 (6-22 (CALC)); BUN 12 mg/dL (8-23); BUN/CREATININE RATIO 15 (12-20 (CALC)); CARBON DIOXIDE 25 mmol/l (22-30); CHLORIDE 106 mmol/l (95-108); CREATININE 0.8 mg/dL (0.5-1.0); GFR FOR AFR.AMER. > 60 ML/MIN (>=60 (CALC)); GFR OTHER RACES > 60 ML/MIN (>=60 (CALC)); MAGNESIUM 1.7 mg/dL (1.6-2.3); SODIUM 135 mmol/l (137-146)
--- NOTE | 2021-10-20 07:52 | NUR ---
DR MORALES AT BEDSIDE. ORDERS FOR LEFT FOOT XRAY. DRY DRESSING APPLIED, REMAINS CDI
[2021-10-20 08:01] VITALS: BP 133/64
[2021-10-20 10:58] VITALS: BP 147/51
--- NOTE | 2021-10-20 11:15 | NUR ---
PEPORT RECEIVED FROM BRASS POLISHER RN. PATIENT RESTING IN BED, AWAKE. NO SIGNS OF DISTRESS NOTED OR VERBALIZED AT THIS TIME. NO PAIN COMPLAINTS. ASSESSMENT COMPLETE. PATIENT A&OX3. TELE MONITOR IN PLACE. BED IN LOWEST POSITION, CALL LIGHT WITHIN REACH. FALL AND SAFETY PRECAUTIONS IN PLACE.
--- NOTE | 2021-10-20 12:30 | NUR ---
PATIENT AWAKE, SITTING IN BED. DR MORALES AT BEDSIDE. GLASS REMOVED FROM LEFT FOOT. DRESSING REAPPLIED.
[2021-10-20 15:53] VITALS: BP 132/61
--- NOTE | 2021-10-20 18:16 | NUR ---
PATIENT IS RESTING IN BED, AWAKE, WATCHING TV. NO SIGNS OF DISTRESS NOTED OR VERBALIZED, NO PAIN COMPLAINTS AT THIS TIME. PATIENT IS A&OX3. BED IN LOWEST POSITION, CALL LIGHT WITHIN REACH. FALL AND SAFETY PRECAUTIONS IN PLACE.
--- NOTE | 2021-10-20 19:12 | NUR ---
REPORT GIVEN TO GLADYS RN
[2021-10-20 19:42] VITALS: BP 135/63
--- NOTE | 2021-10-20 20:16 | NUR ---
Patient resting in bed. Pt denies any pain or discomfort. No needs at this time. Bed alarm on and call light within reach.
[2021-10-21 00:25] VITALS: BP 152/52
[2021-10-21 05:15] VITALS: BP 171/66
--- NOTE | 2021-10-21 05:17 | NUR ---
Pt resting in bed. Denes any pain, discomfort and needs at this time. Call serra within reach.
[2021-10-21 06:12] LABS: HEMATOCRIT 31.5 % (37.0-47.0); HEMOGLOBIN 10.4 g/dl (12.0-16.0); IMMATURE GRANULOCYTES 0.2 % (0.0-5.0); MEAN CORPUSCULAR HGB 30.1 pG CALC (26.0-32.0); NEUT# 4.08 thou/uL (2.00-7.15); RED BLOOD COUNT 3.46 mill/uL (4.20-5.60); RED CELL DISTRI WIDTH 11.7 % (11.5-15.5)
[2021-10-21 06:26] LABS: ALBUMIN 2.5 g/dL (3.2-5.0); ALKALINE PHOSPHATASE 101 u/l (38-126); ANION GAP 8 (6-22 (CALC)); BUN 14 mg/dL (8-23); BUN/CREATININE RATIO 17 (12-20 (CALC)); CARBON DIOXIDE 27 mmol/l (22-30); CHLORIDE 104 mmol/l (95-108); CREATININE 0.8 mg/dL (0.5-1.0); GFR FOR AFR.AMER. > 60 ML/MIN (>=60 (CALC)); GFR OTHER RACES > 60 ML/MIN (>=60 (CALC)); MAGNESIUM 1.6 mg/dL (1.6-2.3); POTASSIUM 4.8 mmol/l (3.5-5.1); SGOT/AST 17 u/l (9-36); SODIUM 134 mmol/l (137-146); TOTAL PROTEIN 5.1 g/dL (6.3-8.2)
[2021-10-21 06:35] LABS: BILIRUBIN, TOTAL 0.3 mg/dL (0.0-1.4)
[2021-10-21 08:00] VITALS: BP 158/60
--- NOTE | 2021-10-21 08:30 | NUR ---
PATIENT IS AWAKE, ALERT, STATES FEELING MUCH BETTER.
--- NOTE | 2021-10-21 12:10 | NUR ---
RESTING QUIETLY IN BED, NO SIGNS OR SYMPTOMS OF DISTRESS NOTED OR VOICED.
[2021-10-21 16:00] VITALS: BP 128/44
--- NOTE | 2021-10-21 16:35 | NUR ---
PATIENT RESTING IN BED, C/O CHILLS AND HEADACHE.
[2021-10-21 19:09] VITALS: BP 177/61
--- NOTE | 2021-10-21 19:27 | NUR ---
Received report from Aundrea CARRANZA. Pt resting in bed in high vaughn position. No needs at this time. Call light within reach,
--- NOTE | 2021-10-21 23:10 | NUR ---
Pt resting in bed. Denies any pain or discomfort at this time. Call light within reach.
[2021-10-21 23:22] VITALS: BP 142/56
[2021-10-22] VITALS (7 sets, daily range): BP systolic 106–164; BP diastolic 51–85
--- NOTE | 2021-10-22 01:39 | NUR ---
Pt was c/o of headache that was unresolved with Tylenol. Informed MD. Ordered was placed for Ultram. Pt did inform me that her headache went away after she "stretched her neck".
--- NOTE | 2021-10-22 03:34 | NUR ---
Pt is sleeping in bed. Does not appear to be in distress or pain. Call light within reach.
[2021-10-22 06:03] LABS: HEMOGLOBIN 10.4 g/dl (12.0-16.0); MEAN CELL VOLUME 90.9 fL CALC (80.0-100.0); MEAN CORPUSCULAR HGB 29.5 pG CALC (26.0-32.0); MEAN CORPUSCULAR HGB CONC 32.5 g/dL CAL (32.0-36.0); RED BLOOD COUNT 3.52 mill/uL (4.20-5.60)
[2021-10-22 06:20] LABS: ANION GAP 10 (6-22 (CALC)); BUN 16 mg/dL (8-23); BUN/CREATININE RATIO 21 (12-20 (CALC)); CARBON DIOXIDE 23 mmol/l (22-30); CHLORIDE 107 mmol/l (95-108); CREATININE 0.7 mg/dL (0.5-1.0); GFR FOR AFR.AMER. > 60 ML/MIN (>=60 (CALC)); GFR OTHER RACES > 60 ML/MIN (>=60 (CALC)); MAGNESIUM 1.6 mg/dL (1.6-2.3); POTASSIUM 4.8 mmol/l (3.5-5.1); SODIUM 135 mmol/l (137-146)
--- NOTE | 2021-10-22 08:00 | NUR ---
AWAKE, ALERT, NO SIGNS OR SYMPTOMS OF DISTRESS.
--- NOTE | 2021-10-22 12:31 | NUR ---
AWAKE, ALERT, NO SIGNS OR SYMPTOMS OF DISTRESS NOTED OR VOICED.
--- NOTE | 2021-10-22 16:00 | NUR ---
RESTING IN BED, NO CHANGES IN CONDITION.
--- NOTE | 2021-10-22 21:15 | NUR ---
AWAKE AND ALERT NER IV SITE STARTED AT LEFT FOREARM BY TIMOTHY CARRANZA ON FIRST ATTEMPT IV FLUIDS STARTED INFUSING WELL. PATIENT ASSISTED TO BATHROOM TOLERATES WELL NO DIZZINESS REPORTED RESPIRATIONS EVEN AND UNLABORED. DRSG AT LEFT FOOT INTACT NO DRAINAGE
[2021-10-23] VITALS (10 sets, daily range): BP systolic 129–186; BP diastolic 50–74
--- NOTE | 2021-10-23 05:37 | NUR ---
BEDLINEN CHANGED PATIENT HAD EPISODE OF DIAPHORESIS AFEBRILE IV SITE AT LEFT FOREARM OUT OF VEIN NO BLEEDING OR SWELLING NOTED. PT DENIES PAIN OR DISCOMFORT.
[2021-10-23 06:10] LABS: HEMATOCRIT 32.4 % (37.0-47.0); HEMOGLOBIN 10.6 g/dl (12.0-16.0); MEAN CELL VOLUME 91.5 fL CALC (80.0-100.0); MEAN CORPUSCULAR HGB 29.9 pG CALC (26.0-32.0); MEAN CORPUSCULAR HGB CONC 32.7 g/dL CAL (32.0-36.0); RED BLOOD COUNT 3.54 mill/uL (4.20-5.60); RED CELL DISTRI WIDTH 11.9 % (11.5-15.5)
[2021-10-23 06:14] LABS: ANION GAP 9 (6-22 (CALC)); BUN 15 mg/dL (8-23); BUN/CREATININE RATIO 23 (12-20 (CALC)); CARBON DIOXIDE 22 mmol/l (22-30); CHLORIDE 108 mmol/l (95-108); CREATININE 0.7 mg/dL (0.5-1.0); GFR FOR AFR.AMER. > 60 ML/MIN (>=60 (CALC)); GFR OTHER RACES > 60 ML/MIN (>=60 (CALC)); MAGNESIUM 1.6 mg/dL (1.6-2.3); SODIUM 134 mmol/l (137-146)
--- NOTE | 2021-10-23 07:00 | NUR ---
PT REPORT FROM LESLIE CARRANZA
--- NOTE | 2021-10-23 08:00 | NUR ---
PT RESTING IN SEMI FOWLERS POSITION A/OX3 ASSESSMENT AND VS COMPLETED. PT HEART RHYTHM NORMAL . RESPIRATIONS EVEN AND UNLABORED BOWEL SOUNDS ACTIVE. TELE IN PLACE IV NOTED IFNUSING WITH NS 80 PT DENIES ADDITIONAL NEEDS AT THE MOMENT. ALL SAFETY PRECAUTIONS IN PLACE WITH CALL LIGHT IN REACH.
--- NOTE | 2021-10-23 12:00 | NUR ---
PT RESTING IN SEMI FOWLERS POSITION. RESPIRATIONS UNLABORED. TELE IN PLACE. PT DENIES ADDITIONAL NEEDS .ALL SAFETY PRECAUTIONS IN PLACE.
--- NOTE | 2021-10-23 14:11 | NUR ---
S: MAGDY LOPEZ is a 70 F who presents with left lower leg cellulitis. She has a history of T2DM, CAD, HTN, Hyperlipidemia, Asthma, GERD, RLS, Hypothyroidism, and ALMA on CPAP. All medications in patient's chart were reviewed. O: VS: BP 147/63mmHg, P 85bpm, RR 16 breaths/min, T 99.3F W 80kg, HT 63in, Scr= 0.7mg/dL, CrCl= 67ml/min A: No cultures were collected. P: Patient is on Aztreonam 2g IV Q8H. Vancomycin ordered for pharmacy to dose. trough is 10 Continue Vancomycin 1g IV Q24H. Vancomycin trough is drawn before the 4th dose on 10/25/21 at 1630. Vancomycin goal trough is between 10-15 mcg/ml. Pharmacy will follow and or advise on antibiotics use as needed.
--- NOTE | 2021-10-23 16:00 | NUR ---
PT RESTING INS MAYDA FOWLERS POSITION. PT QUESTIONED WHEN SHE WILL BE DC PT EDUCATED DUE TO MRI AND EKG SHE HAD TO STAY AN EXTRA NIGHT NO DC INSTRUCTIONS SHOWN. PT DENIES ADDITIONAL NEEDS ALL SAFTEY PRECAUTIONS IN PLACE.
--- NOTE | 2021-10-23 20:00 | NUR ---
[id number] REPORT FROM DAY NURSE, ASSUMED PATIENT CARE, PATIENT RESTINH IN BED, WATCHING TV, BREATHING UNLABORED, LUNG SOUNDS CLEAR, HAS ONGOING IV NS @ 80CC/JHR INFUSING WELL ON RFA, REMAINS ON TELEMETRY SR 94, WOUNG ON LEFT FOOT DRY NO DRAINAGE NOTED, NO DRESSING ORDER AT THIS TIME, CALL LIGHT IN REACH.
--- NOTE | 2021-10-24 | NUR ---
PATIENT AWAKE AT THIS TIME, PRN TYLENOL GIVEN FOR HEADACHE EFFECTIVE REQUESTED CHICKEN BROTH GIVEN CALL LIGHT IN REACH.
[2021-10-24 00:43] VITALS: BP 142/57
[2021-10-24 03:42] LABS: HEMATOCRIT 29.2 % (37.0-47.0); HEMOGLOBIN 9.7 g/dl (12.0-16.0); MEAN CELL VOLUME 89.8 fL CALC (80.0-100.0); MEAN CORPUSCULAR HGB 29.8 pG CALC (26.0-32.0); MEAN CORPUSCULAR HGB CONC 33.2 g/dL CAL (32.0-36.0); NEUT# 3.71 thou/uL (2.00-7.15); RED BLOOD COUNT 3.25 mill/uL (4.20-5.60)
[2021-10-24 03:57] LABS: ALBUMIN 2.2 g/dL (3.2-5.0); ALKALINE PHOSPHATASE 98 u/l (38-126); ANION GAP 7 (6-22 (CALC)); BILIRUBIN, TOTAL 0.2 mg/dL (0.0-1.4); BUN 16 mg/dL (8-23); BUN/CREATININE RATIO 21 (12-20 (CALC)); CARBON DIOXIDE 24 mmol/l (22-30); CHLORIDE 111 mmol/l (95-108); CREATININE 0.8 mg/dL (0.5-1.0); GFR FOR AFR.AMER. > 60 ML/MIN (>=60 (CALC)); GFR OTHER RACES > 60 ML/MIN (>=60 (CALC)); MAGNESIUM 1.6 mg/dL (1.6-2.3); POTASSIUM 4.4 mmol/l (3.5-5.1); SGOT/AST 26 u/l (9-36); SODIUM 137 mmol/l (137-146); TOTAL PROTEIN 4.7 g/dL (6.3-8.2)
--- NOTE | 2021-10-24 04:00 | NUR ---
PATIENT AWAKE AT THIS TIME, ACCUCEK TAKEN C/O SWEATING 96MG/DL, SNACKS PROVIDED WILL, BED CHANGE GOWN REPLACE, CALL LIGHT IN REACH.
[2021-10-24 04:44] VITALS: BP 178/70
--- NOTE | 2021-10-24 07:00 | NUR ---
RECIEVED NURSING NOTE LENORA CARRANZA
[2021-10-24 08:00] VITALS: BP 163/62
--- NOTE | 2021-10-24 08:00 | NUR ---
PT A/OX3 ASSESSMENT AND VS COMPLETED. PT RESTING IN SEMI FOWLERS POSITION. PT HEART RHYTHM NORMAL . RESPIRATIOSN EVEN AND UNLABORED. BOWEL SOUNDS ACTIVE. IV NOTED INFUSING WITH NS . PT DENIES PAIN . PT TO BE DC SOON. ALL SAFETY PRECAUTIONS IN [facility] CALL LIGHT IN REACH.
[2021-10-24] MEDS ORDERED: CLINDAMYCIN300 M1 PO ×2 (09:02→10:45)
[2021-10-24 10:12] VITALS: BP 163/62
--- NOTE | 2021-10-24 10:59 | NUR ---
IV REMOVED Discharge instructions given. Patient verbalizes understanding of same. Discharged in stable condition via Wheelchair to Home with staff. All belongings sent with pt. PT DC HOME MEDS SENT HOME . PT SIGNED PAPER.
== END 2021-10-24 10:59 | disposition home or self-care (01) | DRG 603 ==
LOC: MS2 11:24
PROVIDERS: Nurse Practitioner; ADMIT Internal Medicine; ATTEND Hospitalist
PROC: 0HCNXZZ Extirpation of Matter from Left Foot Skin, External Approach (ICD-10-PCS; principal; 2021-10-20)
DX: L03.116 Cellulitis of left lower limb (principal); S91.322A Laceration with foreign body, left foot, initial encounter; I10 Essential (primary) hypertension; E11.9 Type 2 diabetes mellitus without complications; I25.10 Atherosclerotic heart disease of native coronary artery without angina pectoris; E78.5 Hyperlipidemia, unspecified; J45.909 Unspecified asthma, uncomplicated; K21.9 Gastro-esophageal reflux disease without esophagitis; G25.81 Restless legs syndrome; E03.9 Hypothyroidism, unspecified; G47.33 Obstructive sleep apnea (adult) (pediatric); M54.2 Cervicalgia; G89.29 Other chronic pain; G43.909 Migraine, unspecified, not intractable, without status migrainosus; W45.8XXA Other foreign body or object entering through skin, initial encounter; Y92.009 Unspecified place in unspecified non-institutional (private) residence as the place of occurrence of the external cause; Z89.432 Acquired absence of left foot; Z88.0 Allergy status to penicillin; Z95.1 Presence of aortocoronary bypass graft; Z95.5 Presence of coronary angioplasty implant and graft; Z20.822 Contact with and (suspected) exposure to COVID-19
CPT/HCPCS: J1650; S0073

== ENCOUNTER 2023-05-02 08:38 | Emergency (ER) | payer MEDICARE ==
[~2023-05-02] VITALS: Ht 160 cm; Wt 79.3 kg
[2023-05-02] VITALS (10 sets, daily range): BP systolic 122–168; BP diastolic 48–112
[~2023-05-02 08:38] MED LIST changes: +CLINDAMYCIN300 M1 PO; +LOSARTAN POTASS25 MG PO; +LYRICA75 MG PO
[2023-05-02 09:42] LABS: PROTHROMBIN TIME 9.5 SECONDS (9.0-12.5)
[2023-05-02 09:44] LABS: ALBUMIN 3.7 g/dL (3.2-5.0); ALKALINE PHOSPHATASE 96 u/l (38-126); ANION GAP 12 (6-22 (CALC)); BILIRUBIN, TOTAL 0.5 mg/dL (0.02-1.3); BUN 19 mg/dL (8-23); BUN/CREATININE RATIO 23 (12-20 (CALC)); CARBON DIOXIDE 23 mmol/l (22-30); CHLORIDE 105 mmol/l (95-108); CREATININE 0.8 mg/dL (0.5-1.0); GFR FOR AFR.AMER. > 60 ML/MIN (>=60 (CALC)); GFR OTHER RACES > 60 ML/MIN (>=60 (CALC)); POTASSIUM 5.1 mmol/l (3.5-5.1); SGOT/AST 22 u/l (9-36); SODIUM 135 mmol/l (137-146); TOTAL PROTEIN 6.1 g/dL (6.3-8.2)
[2023-05-02 09:48] LABS: BASO% 0.8 % (0-3); EOS% 3.5 % (0-8); HEMATOCRIT 32.1 % (37.0-47.0); HEMOGLOBIN 10.7 g/dl (12.0-16.0); IMMATURE GRANULOCYTES 0.5 % (0.0-5.0); LYMPH% 21.8 % (15-41); MEAN CELL VOLUME 85.8 fL CALC (80.0-100.0); MEAN CORPUSCULAR HGB 28.6 pG CALC (26.0-32.0); MEAN CORPUSCULAR HGB CONC 33.3 g/dL CAL (32.0-36.0); MONO% 8.2 % (2-13); NEUT# 2.39 thou/uL (2.00-7.15); NEUT% 65.2 % (42-76); RED BLOOD COUNT 3.74 mill/uL (4.20-5.60); RED CELL DISTRI WIDTH 12.2 % (11.5-15.5)
[2023-05-02 14:01] LABS: URINE BILIRUBIN - DIPSTICK Negative (NEGATIVE); URINE GLUCOSE - DIPSTICK 250 mg/dL (NEGATIVE); URINE KETONE Negative (NEGATIVE); URINE LEUK ESTERASE Negative (NEGATIVE); URINE NITRITE - DIPSTICK Negative (Negative); URINE PROTEIN - DIPSTICK 30 mg/dL (NEG-TRACE); URINE UROBILINOGEN - DIPSTICK 0.2 E.U./dL (0.2)
[2023-05-02 14:07] LABS: URINE COLOR Yellow
[2023-05-02 14:15] LABS: URINE BLOOD DIPSTICK N (NEGATIVE)
[2023-05-02 14:16] LABS: URINE EPITHELIAL CELLS FEW EPI/hpf (0-FEW); URINE RBC 0-2 RBC/hpf (0-5); URINE WBC 0-2 WBC/hpf (0-5)
== END 2023-05-02 13:51 | disposition home or self-care (01) ==
LOC: ED 08:38
PROVIDERS: Emergency Medicine
DX: S00.12XA Contusion of left eyelid and periocular area, initial encounter (principal); R55 Syncope and collapse; I10 Essential (primary) hypertension; E11.9 Type 2 diabetes mellitus without complications; W18.30XA Fall on same level, unspecified, initial encounter; Y92.003 Bedroom of unspecified non-institutional (private) residence as the place of occurrence of the external cause; E11.621 Type 2 diabetes mellitus with foot ulcer; L97.523 Non-pressure chronic ulcer of other part of left foot with necrosis of muscle

== ENCOUNTER 2023-06-21 21:46 | Observation (INO) | payer MEDICARE ==
[~2023-06-21] VITALS: Ht 160 cm; Wt 75.6 kg
--- NOTE | 2023-06-21 22:00 | NUR ---
PT BACK TO ROOM 10 VIA WHEELCHAIR. ACCOMPAINED BY .
[2023-06-21] MEDS ORDERED: SODIUM CHLORIDE 0.9% 1,000 ML IV ONE (22:30)
[2023-06-21 23:35] LABS: BASO% 0.5 % (0-3); EOS% 0.8 % (0-8); HEMATOCRIT 36.1 % (37.0-47.0); HEMOGLOBIN 12.5 g/dl (12.0-16.0); LYMPH% 9.8 % (15-41); MEAN CORPUSCULAR HGB 27.8 pG CALC (26.0-32.0); MEAN CORPUSCULAR HGB CONC 34.6 g/dL CAL (32.0-36.0); MONO% 3.4 % (2-13); NEUT# 4.99 thou/uL (2.00-7.15); NEUT% 84.5 % (42-76); RED BLOOD COUNT 4.5 mill/uL (4.20-5.60); RED CELL DISTRI WIDTH 11.6 % (11.5-15.5)
--- NOTE | 2023-06-21 23:37 | NUR ---
IV FLUIDS INFUSING WITHOUT DIFFICULTY. PT ASSISTED WITH REPOSITIONING IN BED FOR COMFORT. CALL LIGHT WITHIN REACH. PENDING LAB RESULTS. PT CONTINUES TO DENIES ANY PAIN OR DISCOMFORT.
[2023-06-21 23:50] LABS: MEAN CELL VOLUME 80.2 fL CALC (80.0-100.0)
[2023-06-21 23:52] LABS: ALBUMIN 3.4 g/dL (3.2-5.0); CREATININE 1.2 mg/dL (0.5-1.0); TOTAL PROTEIN 6.2 g/dL (6.3-8.2)
[2023-06-22] VITALS (11 sets, daily range): BP systolic 74–210; BP diastolic 26–104
[2023-06-22 00:07] LABS: POTASSIUM 3.9 mmol/l (3.5-5.1)
--- NOTE | 2023-06-22 00:32 | NUR ---
PT RESTING QUIETLY. NO APPARENT DISTRESS NOTED.
[2023-06-22] MEDS ORDERED: rOPINIRole Hydrochloride 0.5 MG/TAB PO ONE (00:45)
[2023-06-22 01:46] LABS: URINE BILIRUBIN - DIPSTICK Negative (NEGATIVE); URINE BLOOD DIPSTICK Small (NEGATIVE); URINE GLUCOSE - DIPSTICK 500 mg/dL (NEGATIVE); URINE KETONE 40 mg/dL (NEGATIVE); URINE NITRITE - DIPSTICK Negative (Negative); URINE PH 5.5 (4.5-8.0); URINE PROTEIN - DIPSTICK 100 mg/dL (NEG-TRACE); URINE SPECIFIC GRAVITY 1.025; URINE UROBILINOGEN - DIPSTICK 0.2 E.U./dL (0.2)
--- NOTE | 2023-06-22 01:46 | NUR ---
ASSISTED PT TO BSC, PT BACK INTO BED AND REATTACHED TO MONITOR.
[2023-06-22 02:04] LABS: URINE COLOR Yellow; URINE LEUK ESTERASE Small (NEGATIVE)
[2023-06-22 02:07] LABS: URINE BACTERIA MANY hpf; URINE SQUAMOUS EPITHELIAL CELL FEW EPI/hpf (0-FEW); URINE WBC >100 WBC/hpf (0-5)
--- NOTE | 2023-06-22 02:40 | NUR ---
PT CONTINUES TO C/O NAUSEA. NOTIFIED PHYSICIAN.
[2023-06-22] MEDS ORDERED: ONDANSETRON HCl 4 MG/2 ML SDV IV ONE (02:55)
--- NOTE | 2023-06-22 03:02 | NUR ---
PT STATES NAUSEA SUBSIDED.
--- NOTE | 2023-06-22 04:22 | NUR ---
PT RESTING QUIETLY. NO APPARENT DISTRESS NOTED. CALL LIGHT WITHIN REACH. WILL CONTINUE TO MONITOR.
--- NOTE | 2023-06-22 05:36 | NUR ---
NOTIFIED PHYSICIAN OF PT C/O NAUSEA.
[2023-06-22] MEDS ORDERED: METOCLOPRAMIDE HCL 10 MG/2 ML SDV IV ONE (05:40)
--- NOTE | 2023-06-22 06:01 | NUR ---
MED REC COMPLETED TO [facility]. PT STATES WILL BRING MEDICATIONS IN FOR REVIEW SHE DOES NOT KNOW WHAT ALL SHE IS TAKING. PT ALSO STATES SHE HAS NOT TAKEN MANY OF HER MEDICATIONS IN SEVERAL DAYS DUE TO NAUSEA.
--- NOTE | 2023-06-22 06:04 | NUR ---
NOTIFIED PHYSICIAN OF ELEVATED BP. PT STATES NAUSEA HAS IMPROVED.
[2023-06-22] MEDS ORDERED: SODIUM CHLORIDE 0.9% 1,000 ML IV PRN (06:10)
[2023-06-22] MEDS ORDERED: MAGNESIUM HYDROXIDE 30 ML UDC PO PRN (06:10)
[2023-06-22] MEDS ORDERED: ACETAMINOPHEN 325 MG/TAB PO PRN (06:10)
[2023-06-22] MEDS ORDERED: hydrALAZINE HCL 20 MG/ML VIAL(1 ML) IV ONE (06:20)
[2023-06-22] MEDS ORDERED: ONDANSETRON HCl 4 MG/2 ML SDV IV PRN (07:25)
[2023-06-22] MEDS ORDERED: DEXTROSE 250 ML IV PRN (07:25)
--- NOTE | 2023-06-22 07:41 | NUR ---
NURSE TO NURSE REPORT COMPLETED FOR ROOM 270, PATIENT OT FLOOR WITH TELE
--- NOTE | 2023-06-22 08:00 | NUR ---
RECEIVED FROM ER, ALERT ORIENTED, C/O RESTLESS LEGS. VERY ANXIOUS DUE TO THIS. WAS GIVEN REQUIP IN ER WITH NO RELIEF. IV SITE IN RIGHT AC NONFLUSHABLE. 22G STARTED IN RIGHT FOREARM. OLD SITE REMOVED. AMBULATES IN ROOM WITH STEADY GAIT. HAS PARTIAL FOOT AMPUTATION OF LEFT SIDE. HAS CHRONIC NONHEALING WOUND. STATES SHE HAS HAD THIS WOUND SINCE JULY. BROUGHT HOME MEDS TO UPDATE MED LIST. STATED SHE DOESNT TAKE HER MEDICATIONS LIKE SHE IS SUPPOSED TO. STATED SHE WAS SUPPOSED TO BE TAKING ABT FOR EAR INFECTION BUT HAS NOT TAKEN THEM. DR. MAZARIEGOS NOTIFIED. CALL LIGHT IN REACH.
[2023-06-22 08:02] LABS: BASO% 0.5 % (0-3); EOS% 0.1 % (0-8); HEMATOCRIT 35.9 % (37.0-47.0); HEMOGLOBIN 12.6 g/dl (12.0-16.0); IMMATURE GRANULOCYTES 1.2 % (0.0-5.0); LYMPH% 12.1 % (15-41); MEAN CORPUSCULAR HGB 28.1 pG CALC (26.0-32.0); MEAN CORPUSCULAR HGB CONC 35.1 g/dL CAL (32.0-36.0); MONO% 2.6 % (2-13); NEUT# 6.42 thou/uL (2.00-7.15); NEUT% 83.5 % (42-76); RED BLOOD COUNT 4.49 mill/uL (4.20-5.60); RED CELL DISTRI WIDTH 11.7 % (11.5-15.5)
[2023-06-22 08:19] LABS: ALBUMIN 3.4 g/dL (3.2-5.0); ALKALINE PHOSPHATASE 120 u/l (38-126); BUN 21 mg/dL (8-23); BUN/CREATININE RATIO 20 (12-20 (CALC)); CALCULATED LDLCHOLESTEROL 145 mg/dL (62-129 (CALC)); CHLORIDE 100 mmol/l (95-108); GFR FOR AFR.AMER. > 60 ML/MIN (>=60 (CALC)); GFR OTHER RACES 55 ML/MIN (>=60 (CALC)); HDL CHOLESTEROL 63 mg/dL (39.0-59.0); LIPASE 25 u/l (23-300); MAGNESIUM 1.6 mg/dL (1.6-2.3); POTASSIUM 3.9 mmol/l (3.5-5.1); SGOT/AST 42 u/l (9-36); SODIUM 132 mmol/l (137-146); TOTAL CHOLESTEROL 255 mg/dl (0-199); TOTAL PROTEIN 6.3 g/dL (6.3-8.2); TOTAL TRIGLYCERIDES 238 mg/dl (0-149); VLDL CHOLESTROL 48 mg/dl (0-48 (CALC))
[2023-06-22 08:20] LABS: ANION GAP 23 (6-22 (CALC)); CARBON DIOXIDE 13 mmol/l (22-30)
[2023-06-22] MEDS ORDERED: BUMETANIDE1 MG PO (09:08)
[2023-06-22] MEDS ORDERED: OLMESARTAN MEDO PO (09:10)
[2023-06-22] MEDS ORDERED: ARICEPT PO (09:13)
[2023-06-22] MEDS ORDERED: OZEMPIC2 MG SC (09:15)
[2023-06-22] MEDS ORDERED: TRAZODONE50 MG PO (09:17)
[2023-06-22] MEDS ORDERED: SODIUM CHLORIDE 0.9% 1,000 ML IV SCH (10:00)
[2023-06-22] MEDS ORDERED: MORPHINE SULFATE 4 MG/ML VIAL IV PRN ×2 (10:25→16:35)
[2023-06-22] MEDS ORDERED: ALPRAZolam 0.25 MG PO PRN (10:50)
[2023-06-22] MEDS ORDERED: INSULIN LISPRO 100 UNITS/ML ML SC SCH (11:00)
[2023-06-22] MEDS ORDERED: LEVOTHYROXINE SODIUM 100 MCG TAB PO ONE (11:05)
[2023-06-22] MEDS ORDERED: LEVOTHYROXINE SODIUM 100 MCG TAB PO SCH (11:30)
[2023-06-22] MEDS ORDERED: GABAPENTIN 300 MG/CAP PO SCH (11:30)
[2023-06-22] MEDS ORDERED: LEVOTHYROXINE SODIUM 75 MCG/TAB PO SCH (11:30)
[2023-06-22] MEDS ORDERED: LOSARTAN Potassium 25 MG/TAB PO SCH (11:30)
--- NOTE | 2023-06-22 12:00 | NUR ---
MEDICATED FOR RESTLESS LEG. PATIENT IS NOW IN BED RESTING.
[2023-06-22 13:05] LABS: CREATININE 1.2 mg/dL (0.5-1.0); POTASSIUM 3.8 mmol/l (3.5-5.1)
[2023-06-22] MEDS ORDERED: PATIENT' OWN MED 1 EA DOSE PO SCH (15:00)
--- NOTE | 2023-06-22 16:00 | NUR ---
SITTING IN BED WATCHING TV. DENIES ANY NEEDS AT PRESENT TIME. IV CONTINUES TO BE PATENT.
--- NOTE | 2023-06-22 19:59 | NUR ---
nurse cristian made aware of pt bp of 87/24 & 76/26 on left arm and 96/46 on right arm @1950.
[2023-06-22] MEDS ORDERED: ENOXAPARIN SODIUM 40 MG/0.4 ML SYR SC SCH (21:00)
[2023-06-22] MEDS ORDERED: DONEPEZIL HCL 5 MG/TAB PO SCH (21:00)
--- NOTE | 2023-06-22 22:50 | NUR ---
PT IN BED WATCHING TV NO S/S OF DSGTRESS NOTED. BREATHING IS EVEN AND UNLABORED. AHIFT ASSESMENT COMPLITED. PT PULL HER IV WHEM AMBULATING TO RESTROOM, IV CATH INTACT. NEW IV STARTED TO LFA 22G WITHOUT COMPLICATINS. CURRENTLY INFUSING NS AT 150CC/HR. PT IS ON TELEMETRY SR. AT ROOM AIR. LUNGS SOUNDS ARE CLEAR. PT IS A&OX3. DENIES PAIN OR DISCOMFOERT. CALL LIGHT IN REACH AND BED IN LOWEST POSITION.
--- NOTE | 2023-06-23 01:05 | NUR ---
PT IN BED RESTING WITH EYES CLOSED BREATHING IS EVEN AND UNLABORED. NO S/S OF DISTRESS NOTED. CALL LIGHT IN REACH AND BED IN LOWEST POSITION.
[2023-06-23 03:27] VITALS: BP 97/43
--- NOTE | 2023-06-23 03:30 | NUR ---
PT IN BED, PT REPORT BEEN MORIAH A LOT. PT BLOOD SUGAR IS 130. DENIES PAIN OR DISCOMFORT. PT CLOTHING AND BED LINEN CHANGE. CALL LIGHT IN REACH AND BED IN LOWEST POSITION.
[2023-06-23 05:37] LABS: BASO% 0.6 % (0-3); EOS% 3.1 % (0-8); HEMATOCRIT 31.7 % (37.0-47.0); HEMOGLOBIN 10.9 g/dl (12.0-16.0); IMMATURE GRANULOCYTES 1.3 % (0.0-5.0); LYMPH% 17.6 % (15-41); MEAN CELL VOLUME 82.1 fL CALC (80.0-100.0); MEAN CORPUSCULAR HGB 28.2 pG CALC (26.0-32.0); MEAN CORPUSCULAR HGB CONC 34.4 g/dL CAL (32.0-36.0); MONO% 4.4 % (2-13); NEUT# 3.83 thou/uL (2.00-7.15); RED BLOOD COUNT 3.86 mill/uL (4.20-5.60)
[2023-06-23 05:51] LABS: ALBUMIN 2.6 g/dL (3.2-5.0); BILIRUBIN, TOTAL 0.5 mg/dL (0.02-1.3); CREATININE 1.5 mg/dL (0.5-1.0); MAGNESIUM 1.6 mg/dL (1.6-2.3); POTASSIUM 3.3 mmol/l (3.5-5.1); TOTAL PROTEIN 5.3 g/dL (6.3-8.2)
[2023-06-23] MEDS ORDERED: BUMETANIDE 1 MG/TAB PO SCH (09:00)
[2023-06-23] MEDS ORDERED: POTASSIUM CHLORIDE 20 MEQ/PKT POWDER PO SCH (09:00)
[2023-06-23 10:54] VITALS: BP 82/48
--- NOTE | 2023-06-23 10:59 | NUR ---
patients blood pressure was taken at 10:59 and found her pressure to to be 82/48 in a sitting position. I alerted the nurse.
[2023-06-23] MEDS ORDERED: SODIUM CHLORIDE 0.9% 1,000 ML IV SCH (11:30)
[2023-06-23 12:27] LABS: CREATININE 1.5 mg/dL (0.5-1.0); POTASSIUM 4.3 mmol/l (3.5-5.1)
[2023-06-23 14:57] VITALS: BP 157/60
[2023-06-23 19:01] VITALS: BP 121/56
--- NOTE | 2023-06-23 21:14 | NUR ---
PT IN BED WATCHING TV NO S/S OF DISTRESS NOTED. BREAHTING IS EVEN AND UNLBAORED. SHIFT ASSESMENT COMPLETED. PT IS ON TELE. IV TO LFA INFUSING NS AT 150CC. PT REPORT URINARY FREQUENCY. PT ON IV ANTIBIOTICS FOR UTI. PT IS AT ROOM AIR. NO NEEDS OR CONCERNS VICED. CALL LIGHT IN REACH AND BED IN LOWEST POSITON.
[2023-06-24] VITALS (7 sets, daily range): BP systolic 119–153; BP diastolic 47–72
--- NOTE | 2023-06-24 01:08 | NUR ---
PT IN BED NO S/S OF DISTRESS NOTED. BREAHTING IS EVEN AND UNLABORED. DENIES PAIN OR DISCOMFORT. CALL LIGHT IN REACH AND BED IN LOWEST POSITION.
--- NOTE | 2023-06-24 04:28 | NUR ---
PT IN BED RESTING WITH EYES CLOSED BREATHING IS EVEN AND UNLABORED. NO S/S OF DISTRESS NOTED. CALL LIGHT IN REACH AND BED IN LOWSET POSITION.
[2023-06-24 05:52] LABS: BASO% 0.4 % (0-3); EOS% 3.7 % (0-8); HEMATOCRIT 27.2 % (37.0-47.0); HEMOGLOBIN 9.7 g/dl (12.0-16.0); IMMATURE GRANULOCYTES 2.5 % (0.0-5.0); LYMPH% 20.3 % (15-41); MEAN CELL VOLUME 80.7 fL CALC (80.0-100.0); MEAN CORPUSCULAR HGB 28.8 pG CALC (26.0-32.0); MEAN CORPUSCULAR HGB CONC 35.7 g/dL CAL (32.0-36.0); MONO% 4.9 % (2-13); NEUT# 3.33 thou/uL (2.00-7.15); NEUT% 68.2 % (42-76); RED BLOOD COUNT 3.37 mill/uL (4.20-5.60); RED CELL DISTRI WIDTH 11.9 % (11.5-15.5)
[2023-06-24 06:12] LABS: ALBUMIN 2.2 g/dL (3.2-5.0); BILIRUBIN, TOTAL 0.4 mg/dL (0.02-1.3); CREATININE 1.1 mg/dL (0.5-1.0); MAGNESIUM 1.4 mg/dL (1.6-2.3); POTASSIUM 3.7 mmol/l (3.5-5.1); TOTAL PROTEIN 4.8 g/dL (6.3-8.2)
[2023-06-24] MEDS ORDERED: MAGNESIUM SULFATE HEPTAHYDRATE 50 ML IV SCH (08:00)
--- NOTE | 2023-06-24 08:01 | NUR ---
SHIFT CHANGE REPORT, PT AWAKE AND ALERT RESTIN IN BED, NO C/O DISCOMFORT AT THIS TIME,TELE MONITOR IN PLACE, CALL ACHARYA IN REACH AND BED LOCKED IN LOWEST POSITION.
[2023-06-24 09:57] LABS: HEMATOCRIT 29.9 % (37.0-47.0); HEMOGLOBIN 10.6 g/dl (12.0-16.0); MEAN CELL VOLUME 80.8 fL CALC (80.0-100.0); MEAN CORPUSCULAR HGB 28.6 pG CALC (26.0-32.0); MEAN CORPUSCULAR HGB CONC 35.5 g/dL CAL (32.0-36.0); RED BLOOD COUNT 3.7 mill/uL (4.20-5.60)
--- NOTE | 2023-06-24 13:56 | NUR ---
Discharge instructions given. Patient verbalizes understanding of same. Discharged in stable condition via Wheelchair to Home with spouse. All belongings sent with pt.
[2023-06-24] MEDS ORDERED: GABAPENTIN 100 MG/CAP PO SCH (21:00)
== END 2023-06-24 13:44 | disposition home health service (06) ==
LOC: ED 21:46 → MS2 06-22 04:47
PROVIDERS: Family Medicine; ADMIT Student in an Organized Health Care Education/Training Program; ATTEND Student in an Organized Health Care Education/Training Program
DX: R11.2 Nausea with vomiting, unspecified (principal); N39.0 Urinary tract infection, site not specified; I95.9 Hypotension, unspecified; E86.0 Dehydration; E11.65 Type 2 diabetes mellitus with hyperglycemia; I10 Essential (primary) hypertension; E11.59 Type 2 diabetes mellitus with other circulatory complications; I25.10 Atherosclerotic heart disease of native coronary artery without angina pectoris; J45.909 Unspecified asthma, uncomplicated; E03.9 Hypothyroidism, unspecified; E78.5 Hyperlipidemia, unspecified; K21.9 Gastro-esophageal reflux disease without esophagitis; G47.33 Obstructive sleep apnea (adult) (pediatric); G25.81 Restless legs syndrome; T38.3X6A Underdosing of insulin and oral hypoglycemic [antidiabetic] drugs, initial encounter; Z91.128 Patient's intentional underdosing of medication regimen for other reason; Z95.1 Presence of aortocoronary bypass graft; Z98.84 Bariatric surgery status; Z95.5 Presence of coronary angioplasty implant and graft; Z89.439 Acquired absence of unspecified foot; Z79.85 Long-term (current) use of injectable non-insulin antidiabetic drugs
CPT/HCPCS: J1650; J3475

== ENCOUNTER 2023-07-02 16:46 | Inpatient (IN) | payer MEDICARE ==
[2023-07-02] VITALS (12 sets, daily range): BP systolic 85–146; BP diastolic 40–83
[~2023-07-02] VITALS: Ht 160 cm; Wt 76.8 kg
[~2023-07-02 16:46] MED LIST changes: +ARICEPT PO; +BUMETANIDE1 MG PO; +OLMESARTAN MEDO PO; +OZEMPIC2 MG SC; +TRAZODONE50 MG PO
[2023-07-02] MEDS ORDERED: SODIUM CHLORIDE 0.9% 1,000 ML IV STA (17:04)
[2023-07-02] MEDS ORDERED: ONDANSETRON HCl 4 MG/2 ML SDV IV STA (17:04)
[2023-07-02 17:51] LABS: BASO% 0.8 % (0-3); EOS% 1.2 % (0-8); HEMATOCRIT 29.8 % (37.0-47.0); HEMOGLOBIN 10.1 g/dl (12.0-16.0); IMMATURE GRANULOCYTES 0.7 % (0.0-5.0); LYMPH% 12.8 % (15-41); MEAN CELL VOLUME 82.5 fL CALC (80.0-100.0); MEAN CORPUSCULAR HGB CONC 33.9 g/dL CAL (32.0-36.0); MONO% 5.4 % (2-13); NEUT# 4.69 thou/uL (2.00-7.15); NEUT% 79.1 % (42-76); RED BLOOD COUNT 3.61 mill/uL (4.20-5.60); RED CELL DISTRI WIDTH 12.1 % (11.5-15.5)
[2023-07-02 18:10] LABS: AMYLASE 32 u/l (30-110); BUN 18 mg/dL (8-23); BUN/CREATININE RATIO 19 (12-20 (CALC)); CHLORIDE 96 mmol/l (95-108); GFR FOR AFR.AMER. > 60 ML/MIN (>=60 (CALC)); GFR OTHER RACES 55 ML/MIN (>=60 (CALC)); LIPASE 19 u/l (23-300); SGOT/AST 25 u/l (9-36); SODIUM 126 mmol/l (137-146)
[2023-07-02 18:11] LABS: ALBUMIN 2.9 g/dL (3.2-5.0); ALKALINE PHOSPHATASE 108 u/l (38-126); ANION GAP 9 (6-22 (CALC)); BILIRUBIN, TOTAL 0.7 mg/dL (0.02-1.3); CARBON DIOXIDE 26 mmol/l (22-30); POTASSIUM 4.5 mmol/l (3.5-5.1); TOTAL PROTEIN 6.1 g/dL (6.3-8.2)
[2023-07-02 19:41] LABS: URINE BILIRUBIN - DIPSTICK Negative (NEGATIVE); URINE BLOOD DIPSTICK Negative (NEGATIVE); URINE GLUCOSE - DIPSTICK 100 mg/dL (NEGATIVE); URINE KETONE Negative (NEGATIVE); URINE NITRITE - DIPSTICK Negative (Negative); URINE PROTEIN - DIPSTICK Negative (NEG-TRACE); URINE UROBILINOGEN - DIPSTICK 0.2 E.U./dL (0.2)
[2023-07-02 19:46] LABS: URINE COLOR Yellow; URINE LEUK ESTERASE Small (NEGATIVE)
[2023-07-02 19:56] LABS: URINE SQUAMOUS EPITHELIAL CELL FEW EPI/hpf (0-FEW); URINE WBC 0-2 WBC/hpf (0-5)
[2023-07-02] MEDS ORDERED: ACETAMINOPHEN 325 MG/TAB PO PRN (21:10)
[2023-07-02] MEDS ORDERED: SODIUM CHLORIDE 0.9% 1,000 ML IV PRN (21:10)
[2023-07-02] MEDS ORDERED: MAGNESIUM HYDROXIDE 30 ML UDC PO PRN (21:10)
[2023-07-03] VITALS (34 sets, daily range): BP systolic 101–193; BP diastolic 42–87
[2023-07-03] MEDS ORDERED: LEVOTHYROXINE SODIUM 100 MCG TAB PO SCH (06:00)
[2023-07-03] MEDS ORDERED: LEVOTHYROXINE SODIUM 75 MCG/TAB PO SCH (06:00)
[2023-07-03] MEDS ORDERED: PANTOPRAZOLE SODIUM Sesquihydr 40 MG/TAB PO SCH (09:00)
[2023-07-03 09:54] LABS: ALBUMIN 2.7 g/dL (3.2-5.0); ALKALINE PHOSPHATASE 95 u/l (38-126); ANION GAP 14 (6-22 (CALC)); BILIRUBIN, TOTAL 0.7 mg/dL (0.02-1.3); BUN 15 mg/dL (8-23); BUN/CREATININE RATIO 19 (12-20 (CALC)); CHLORIDE 99 mmol/l (95-108); CREATININE 0.8 mg/dL (0.5-1.0); GFR FOR AFR.AMER. > 60 ML/MIN (>=60 (CALC)); GFR OTHER RACES > 60 ML/MIN (>=60 (CALC)); SGOT/AST 38 u/l (9-36); SODIUM 126 mmol/l (137-146); TOTAL PROTEIN 5.8 g/dL (6.3-8.2)
[2023-07-03 10:09] LABS: CARBON DIOXIDE 18 mmol/l (22-30)
[2023-07-03] MEDS ORDERED: DEXTROSE 250 ML IV PRN (12:30)
[2023-07-03] MEDS ORDERED: DONEPEZIL HCL 5 MG/TAB PO SCH (13:30)
[2023-07-03] MEDS ORDERED: LOSARTAN Potassium 25 MG/TAB PO SCH (13:30)
[2023-07-03] MEDS ORDERED: INSULIN DETEMIR 100 UNITS/ML SC SCH (15:00)
[2023-07-03] MEDS ORDERED: MULTI 501 (16:25)
[2023-07-03] MEDS ORDERED: ACETAMIN500 M2 PO (16:26)
[2023-07-03] MEDS ORDERED: BENICAR HCT1 TA1 (16:32)
[2023-07-03] MEDS ORDERED: INSULIN LISPRO 100 UNITS/ML ML SC SCH (17:00)
[2023-07-03] MEDS ORDERED: ENOXAPARIN SODIUM 40 MG/0.4 ML SYR SC SCH (21:00)
[2023-07-04 03:54] VITALS: BP 135/51
[2023-07-04 05:19] VITALS: BP 135/51
[2023-07-04 06:23] LABS: BASO% 1.1 % (0-3); EOS% 0.8 % (0-8); HEMATOCRIT 30.7 % (37.0-47.0); HEMOGLOBIN 10.1 g/dl (12.0-16.0); IMMATURE GRANULOCYTES 0.2 % (0.0-5.0); LYMPH% 17.9 % (15-41); MEAN CELL VOLUME 84.8 fL CALC (80.0-100.0); MEAN CORPUSCULAR HGB 27.9 pG CALC (26.0-32.0); MEAN CORPUSCULAR HGB CONC 32.9 g/dL CAL (32.0-36.0); MONO% 6.7 % (2-13); NEUT# 4.59 thou/uL (2.00-7.15); NEUT% 73.3 % (42-76); RED BLOOD COUNT 3.62 mill/uL (4.20-5.60)
[2023-07-04 06:42] VITALS: BP 119/45
[2023-07-04 06:47] LABS: ALBUMIN 2.6 g/dL (3.2-5.0); ALKALINE PHOSPHATASE 95 u/l (38-126); ANION GAP 8 (6-22 (CALC)); BILIRUBIN, TOTAL 0.5 mg/dL (0.02-1.3); BUN 15 mg/dL (8-23); BUN/CREATININE RATIO 19 (12-20 (CALC)); CHLORIDE 104 mmol/l (95-108); CREATININE 0.8 mg/dL (0.5-1.0); GFR FOR AFR.AMER. > 60 ML/MIN (>=60 (CALC)); GFR OTHER RACES > 60 ML/MIN (>=60 (CALC)); MAGNESIUM 1.6 mg/dL (1.6-2.3); POTASSIUM 4.5 mmol/l (3.5-5.1); SGOT/AST 25 u/l (9-36); SODIUM 131 mmol/l (137-146); TOTAL PROTEIN 5.7 g/dL (6.3-8.2)
[2023-07-04 06:48] LABS: CARBON DIOXIDE 24 mmol/l (22-30)
[2023-07-04] MEDS ORDERED: ONDANSETRON HCl 4 MG/2 ML SDV IV PRN (09:15)
[2023-07-04 14:42] VITALS: BP 151/56
[2023-07-04 20:12] VITALS: BP 157/70
[2023-07-05 04:22] VITALS: BP 152/66
[2023-07-05 05:26] LABS: BASO% 1.4 % (0-3); EOS% 1.6 % (0-8); HEMOGLOBIN 9.5 g/dl (12.0-16.0); IMMATURE GRANULOCYTES 0.3 % (0.0-5.0); LYMPH% 18.1 % (15-41); MEAN CELL VOLUME 86.1 fL CALC (80.0-100.0); MEAN CORPUSCULAR HGB 28.2 pG CALC (26.0-32.0); MEAN CORPUSCULAR HGB CONC 32.8 g/dL CAL (32.0-36.0); MONO% 5.4 % (2-13); NEUT# 2.71 thou/uL (2.00-7.15); NEUT% 73.2 % (42-76); RED BLOOD COUNT 3.37 mill/uL (4.20-5.60); RED CELL DISTRI WIDTH 11.9 % (11.5-15.5)
[2023-07-05 05:34] VITALS: BP 152/66
[2023-07-05 05:59] LABS: ALBUMIN 2.3 g/dL (3.2-5.0); ALKALINE PHOSPHATASE 91 u/l (38-126); ANION GAP 6 (6-22 (CALC)); BILIRUBIN, TOTAL 0.5 mg/dL (0.02-1.3); BUN 12 mg/dL (8-23); BUN/CREATININE RATIO 19 (12-20 (CALC)); CARBON DIOXIDE 23 mmol/l (22-30); CHLORIDE 106 mmol/l (95-108); CREATININE 0.6 mg/dL (0.5-1.0); GFR FOR AFR.AMER. > 60 ML/MIN (>=60 (CALC)); GFR OTHER RACES > 60 ML/MIN (>=60 (CALC)); MAGNESIUM 1.5 mg/dL (1.6-2.3); POTASSIUM 4.5 mmol/l (3.5-5.1); SGOT/AST 25 u/l (9-36); SODIUM 131 mmol/l (137-146); TOTAL PROTEIN 5.1 g/dL (6.3-8.2)
[2023-07-05 06:55] VITALS: BP 147/55
[2023-07-05 09:17] VITALS: BP 147/55
[2023-07-05] MEDS ORDERED: LEVEMIR100 UNIT SC (12:00)
== END 2023-07-05 13:33 | DRG 641 ==
LOC: ED 16:46 → ED-I 20:10 → ED 20:35 → ED-I 20:36 → MS2 07-03 15:15
PROVIDERS: Nurse Practitioner; Nurse Practitioner Family; ADMIT Internal Medicine; ATTEND Internal Medicine
DX: E87.1 Hypo-osmolality and hyponatremia (principal); L97.422 Non-pressure chronic ulcer of left heel and midfoot with fat layer exposed; E86.0 Dehydration; E11.65 Type 2 diabetes mellitus with hyperglycemia; I10 Essential (primary) hypertension; E11.621 Type 2 diabetes mellitus with foot ulcer; I25.10 Atherosclerotic heart disease of native coronary artery without angina pectoris; E11.649 Type 2 diabetes mellitus with hypoglycemia without coma; E03.9 Hypothyroidism, unspecified; E78.5 Hyperlipidemia, unspecified; K21.9 Gastro-esophageal reflux disease without esophagitis; G47.33 Obstructive sleep apnea (adult) (pediatric); G25.81 Restless legs syndrome; Z98.84 Bariatric surgery status; Z95.5 Presence of coronary angioplasty implant and graft; Z91.81 History of falling; Z20.822 Contact with and (suspected) exposure to COVID-19
CPT/HCPCS: J1650